=== PATIENT | female | born 1940 | race Caucasian/White ===

== ENCOUNTER 2017-02-07 09:28 | Inpatient (IN) | payer MEDICARE ==
[2017-02-07] MEDS ORDERED: IPRATROPIUM/ALBUTEROL (0.5MG/3MG) NEB INH ONE (09:48)
[2017-02-07] MEDS ORDERED: METHYLPREDNISOLONE PF 125MG/VIAL IVP ONE (09:56)
--- NOTE | 2017-02-07 09:59 | Emergency Department Record ---
History of Present Illness - General Chief Complaint: Cough Stated Complaint: COUGH Time Seen by Provider: 02/07/17 09:52 Source: Patient, Family Mode of Arrival: Wheelchair Limitations: No limitations - History of Present Illness Initial Comments: 77 yo female presents with cough and congestion since the weekend. She has a known history of COPD and CAD. She is not currently on home oxygen. She reports a productive cough with fevers. No vomiting or diarrhea. No chest pain. She has a remote history of pneumonia. She had a valve repaired about 6 months ago and reports doing well. she reports with the current cough she has shortness of breath with activity. MD Complaint: Cough Onset/Timin -: Days(s) (3) Severity: Moderate Consistency: Constant Improves With: Nothing Worsens With: Activity Associated Symptoms: Cough - Related Data Home Medications Medication Instructions Recorded Confirmed Last Taken Albuterol Sulfate [Proair 2 puff INH Q4HR PRN 08/19/16 08/19/16 Unknown Respiclick] Aspirin 81 mg PO DAILY 08/19/16 02/07/17 02/07/17 Clopidogrel Bisulfate [Plavix] 75 mg PO DAILY 08/19/16 02/07/17 02/07/17 Fluticasone/Salmeterol [Advair 1 puff INH BID 08/19/16 02/07/17 02/07/17 500-50 Diskus] Nitroglycerin [Nitrostat] 0.4 mg SL ASDIR PRN 08/19/16 02/07/17 Unknown Sertraline HCl [Zoloft] 50 mg PO DAILY 08/19/16 02/07/17 02/06/17 Tiotropium [place] [Spiriva] 18 mcg PO DAILY 08/19/16 02/07/17 02/06/17 Allergies Allergy/AdvReac Type Severity Reaction Status Date / Time codeine AdvReac VOMITING Verified 08/19/16 11:39 Travel Screening - Travel/Exposure Within Last 30 Days Have you traveled within the last 30 days?: No - Travel/Exposure Within Last Year Have you traveled outside the [place] in the last year?: No - Additonal Travel Details Have you been exposed to anyone with a communicable illness?: No - Travel Symptoms Symptom Screening: None Review of Systems Constitutional: Reports: Fever, Malaise. Denies: Chills Eyes: Denies: Eye discharge, Eye pain, Photophobia, Vision change ENT: Reports: Congestion Respiratory: Reports: Cough, Dyspnea, Wheezes Cardiovascular: Denies: Chest pain, Syncope Endocrine: Denies: Polydipsia, Polyuria Gastrointestinal: Denies: Abdominal pain, Diarrhea, Nausea, Vomiting Genitourinary: Denies: Dysuria, Urgency Musculoskeletal: Denies: Arthralgia, Back pain, Myalgia, Neck pain Skin: Denies: Bruising, Change in color, Rash Neurological: Denies: Headache, Numbness, Vertigo, Weakness Psychiatric: Denies: Anxiety Hematological/Lymphatic: Denies: Blood Clots, Easy bleeding, Easy bruising, Swollen glands Past Medical History - SOCIAL HISTORY Smoking Status: Former smoker Alcohol Use: None Drug Use: None - RESPIRATORY Hx Respiratory Disorders: Yes Hx COPD: Yes - CARDIOVASCULAR Hx Cardio Disorders: Yes Hx Chest Pain: Yes Hx Hypertension: Yes Comment:: Valve replacement - NEURO Hx Neuro Disorders: No - GI Hx GI Disorders: No - Hx Genitourinary Disorders: No - ENDOCRINE Hx Endocrine Disorders: No - MUSCULOSKELETAL Hx Musculoskeletal Disorders: No - PSYCH Hx Psych Problems: Yes Hx Anxiety: Yes Hx Depression: Yes - HEMATOLOGY/ONCOLOGY Hx Hematology/Oncology Disorders: No Family Medical History Any Significant Family History?: No Hx Heart Disease: Father, Mother Physical Exam - General General Appearance: Alert, Oriented x3, Cooperative, Mild distress (labored respirations, mild, some conversational dyspnea) Limitations: No limitations - Head Head exam: Normal inspection - Eye Eye exam: Normal appearance, PERRL. negative: Conjunctival injection, Periorbital swelling - ENT ENT exam: Normal exam, Mucous membranes moist Ear exam: Normal external inspection Nasal Exam: Normal inspection Mouth exam: Normal external inspection Teeth exam: Normal inspection Throat exam: Normal inspection - Neck Neck exam: Normal inspection, Full ROM. negative: Tenderness - Respiratory Respiratory exam: Decreased breath sounds, Rhonchi, Wheezes. negative: Normal lung sounds bilaterally - Cardiovascular Cardiovascular Exam: Regular rate, Normal rhythm, Normal heart sounds - GI/Abdominal GI/Abdominal exam: Soft - Rectal Rectal exam: Deferred - exam: Deferred - Extremities Extremities exam: Normal inspection, Full ROM, Normal capillary refill. negative: Pedal edema, Tenderness - Back Back exam: Reports: Normal inspection, Full ROM. Denies: Muscle spasm, Rash noted, Tenderness - Neurological Neurological exam: Alert, Normal gait, Oriented X3 - Psychiatric Psychiatric exam: Normal affect, Normal mood - Skin Skin exam: Dry, Intact, Normal color, Warm Course Vital Signs 02/07/17 09:33 Temperature 98.4 F Pulse Rate 94 H Respiratory 24 Rate Blood Pressure 148/113 Pulse Ox 89 L - Reevaluation(s) Reevaluation #1: CBC WBC 3.3 CMP No acute changes EKG Sinus rhythm, rate 88, intervals normal, axis left, PVC, NS ST changes. 02/07/17 10:57 02/07/17 11:41 Reevaluation #2: Influenza is negative No acute changes on the CBC,CMP or troponin The CXR was read as post op changes, chronic interstitial changes may represent pneumonitis or pulmonary edema MILD. Clinically the patient has had fever, productive cough and symptoms are more consistent with COPD exacerbation I recommend admission for the symptoms She prefers to stay at [facility] for admission. 02/07/17 11:15 Given her hypoxia and dyspnea she will be admitted for COPD exacerbation. I ANUJ ASHBY for admission 02/07/17 11:40 02/07/17 11:43 Medical Decision Making - Lab Data Result diagrams: 02/07/17 09:45 02/07/17 09:45 Disposition Forms: Patient Portal Access
[2017-02-07 10:23] LABS: HEMATOCRIT 35.3 % (35.0-47.0); HEMOGLOBIN 11.3 gm/dl (11.6-16.0); MEAN CORPUSCULAR HEMOGLOBIN 25.9 pg (27-33); MEAN PLATELET VOLUME 10.8 fl (7.4-10.4); PLATELET COUNT 185 K/uL (130-400); RED BLOOD COUNT 4.36 M/uL (3.80-5.40); RED CELL DISTRIBUTION WIDTH 16.3 % (11.5-14.5); WHITE BLOOD COUNT W/O DIFF 3.3 K/uL (4.2-12.2)
[2017-02-07 10:35] LABS: ALB/GLOB RATIO 1.1 (1.1-1.8); ALBUMIN 3.7 gm/dL (3.5-5.0); ALKALINE PHOSPHATASE 110 U/L (38-126); ALT/SGPT 51 U/L (9-52); AST/SGOT 49 U/L (14-36); BILIRUBIN,TOTAL 0.46 mg/dL (0.2-1.3); BLOOD UREA NITROGEN 11 mg/dL (7-17); CREATININE 0.6 mg/dL (0.52-1.04); EST GLOMERULAR FILTRATION RATE > 60 ml/min; GLUCOSE,RANDOM 110 mg/dL (70-110); TOTAL PROTEIN 7.1 gm/dL (6.3-8.2)
[2017-02-07 10:47] LABS: TROPONIN I < 0.012 ng/mL (0.00-0.034)
[2017-02-07 11:13] LABS: INFLUENZA A NEGATIVE (NEGATIVE); INFLUENZA B NEGATIVE (NEGATIVE)
[2017-02-07] MEDS ORDERED: ACETAMINOPHEN 500 MG TABLET PO ONE (11:33)
[2017-02-07] MEDS ORDERED: ALBUTEROL SULFATE (0.083%) 2.5 MG/3 ML NEB INH PRN (12:02)
[2017-02-07] MEDS ORDERED: ACETAMINOPHEN 500 MG TABLET PO PRN (12:02)
[2017-02-07] MEDS ORDERED: CEFTRIAXONE SODIUM 1 GM in 0.9 % SODIUM CHLORIDE 100ML 100 ML IVPB SCH (12:02)
[2017-02-07] MEDS: IPRATROPIUM/ALBUTEROL (0.5MG/3MG) NEB INH SCH ×3 (13:37→22:11)
[2017-02-07] MEDS: AZITHROMYCIN 500 MG TABLET PO SCH (14:04)
--- NOTE | 2017-02-07 14:19 | History & Physical ---
History of Present Illness - Date of Service Date of Service for History & Physical: 02/07/17 - History of Present Illness Admitting Diagnosis: COPD Exacerbation History of Present Illness: 77 yo female admitted for COPD exacerbation. PMHx of COPD, smoker (quit 6 mo's ago, 1/2 ppd x 45 years. h/o second hand smoke), cardiac stent 07/2016, GA August 2016, repair, PNA 09/2016, and depression. History obtained from patient. Patient presented to our ER today c/o yellow productive cough, congestion and sob. Onset was this past weekend. no agg/alleviating factors. assoc sx's include fatigue, weakness, orthopnea, and decreased sleep. Upon presentation, temp 98.4, HR 94, RR 24, bp 148/113, pulse ox 89 % on RA. WBC 3.3, hgb 11.3, hct 35.3, plt 185, normal CMP. influenza negative. troponin neg x 1. EKG: NSR , rate 88, intervals normal, axis left, NS ST changes. CXR: chronic interstitial changes may represent pneumonitis or mild pulmonary edema. patient 's pulse ox improved following duo neb treatment in the ER. 125 mg of IV solu medrol administered. Started on 1 gm of IV Rocephin Q12 hours and 500 mg of PO Azithromycin. Duo neb treatments scheduled Q 4 hours and albuterol inh Q2 PRN. Patient placed on teletypesetter monitor and admitted for further medical management. Patient brought to the floor. Lying in bed comfortably. Feeling less SOB following breathing treatment w/ Duo neb. Coughing up yellow sputum. States she's very fatigued and has not been able to get much sleep due to coughing. States she's been hospitalized within the past 6 months with pneumonia. The past hospitalization is a blur for patient stating "I was too ill at that time to remember it." Per patient, she was discharged from [facility] facility 01/28/17. States she's also required hospice therapy within the past 6 months though cannot tell me when this was and why she required hospice. She denies any chest pain, nvd, abd pain, blood in stool or sputum, dysuria, headhache, dizziness, confusion, change in gait or extremity weakness. 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 Denies recent travel or sick contacts. 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 PCP: Tiffani Bates M.D. Information Technology Officer: Dr. Avalos Travel Screening - Travel/Exposure Within Last 30 Days Have you traveled within the last 30 days?: No - Travel/Exposure Within Last Year Have you traveled outside the [place] in the last year?: No - Additonal Travel Details Have you been exposed to anyone with a communicable illness?: No - Travel Symptoms Symptom Screening: None Review of Systems Constitutional: Reports: Fever, Malaise. Denies: Chills Eyes: Denies: Eye discharge, Eye pain, Photophobia, Vision change ENT: Reports: Congestion Respiratory: Reports: Cough, Dyspnea, Wheezes Cardiovascular: Denies: Chest pain, Syncope Endocrine: Denies: Polydipsia, Polyuria Gastrointestinal: Denies: Abdominal pain, Diarrhea, Nausea, Vomiting Genitourinary: Denies: Dysuria, Urgency Musculoskeletal: Denies: Arthralgia, Back pain, Myalgia, Neck pain Skin: Denies: Bruising, Change in color, Rash Neurological: Denies: Headache, Numbness, Vertigo, Weakness Psychiatric: Denies: Anxiety Hematological/Lymphatic: Denies: Blood Clots, Easy bleeding, Easy bruising, Swollen glands Past Medical History - SOCIAL HISTORY Smoking Status: Former smoker Alcohol Use: None Drug Use: None - RESPIRATORY Hx Respiratory Disorders: Yes Hx COPD: Yes Hx Pneumonia: Yes (Sep 2017) - CARDIOVASCULAR Hx Cardio Disorders: Yes Hx Chest Pain: Yes Hx Hypertension: Yes Comment:: Valve replacement Aug 2017 - NEURO Hx Neuro Disorders: No - GI Hx GI Disorders: No - Hx Genitourinary Disorders: No - ENDOCRINE Hx Endocrine Disorders: No - MUSCULOSKELETAL Hx Musculoskeletal Disorders: No - PSYCH Hx Psych Problems: Yes Hx Anxiety: Yes Hx Depression: Yes - HEMATOLOGY/ONCOLOGY Hx Hematology/Oncology Disorders: No Family Medical History Any Significant Family History?: Yes Hx Heart Disease: Father, Mother H&P Meds/Allergies - Allergies Allergies: Allergies Allergy/AdvReac Type Severity Reaction Status Date / Time codeine AdvReac VOMITING Verified 08/19/16 11:39 - Home Medications Home Medications Medication Instructions Recorded Confirmed Last Taken Albuterol Sulfate [Proair 2 puff INH Q4HR PRN 08/19/16 08/19/16 Unknown Respiclick] Aspirin 81 mg PO DAILY 1002/07/17 02/07/17 Clopidogrel Bisulfate [Plavix] 75 mg PO DAILY 08/19/16 02/07/17 02/07/17 Fluticasone/Salmeterol [Advair 1 puff INH BID 08/19/16 02/07/17 02/07/17 500-50 Diskus] Nitroglycerin [Nitrostat] 0.4 mg SL ASDIR PRN 08/19/16 02/07/17 Unknown Sertraline HCl [Zoloft] 50 mg PO DAILY 08/19/16 02/07/17 02/06/17 Tiotropium [place] [Spiriva] 18 mcg PO DAILY 08/19/16 02/07/17 02/06/17 Mirtazapine [Mirtazapine] 7.5 mg PO QHS 02/07/17 02/07/17 Unknown - Active Medications Active Medications: Current Medications Acetaminophen (Tylenol 500mg Tab) 500 mg PO Q6H PRN PRN Reason: PAIN/TEMP Albuterol Sulfate () 2.5 mg INH RESP.Q2H PRN PRN Reason: DIFFICULTY IN BREATHING Albuterol/Ipratropium (Duoneb) 3 ml INH RESP.Q4H.[facility] Last Admin: 02/07/17 13:37 Dose: 3 ml Aspirin (Ecotrin (Ec)) 81 mg PO DAILY [facility] Azithromycin (Zithromax) 500 mg PO DAILY [facility] Last Admin: 02/07/17 14:04 Dose: 500 mg Clopidogrel Bisulfate (Plavix) 75 mg PO DAILY [facility] Ceftriaxone Sodium 1 gm/ (Sodium Chloride) 100 mls @ 100 mls/hr IVPB Q12H [facility] Stop: 02/12/17 12:03 Methylprednisolone Sodium Succinate (Solu-Medrol) 60 mg IVP DAILY [facility] Mirtazapine (Remeron) 7.5 mg PO QHS [facility] Sertraline HCl (Zoloft) 50 mg PO DAILY [facility] Physical Exam - Vital Signs Vital Signs: Vital Signs - Last 24 Hrs Temp Pulse Pulse Resp BP Pulse Ox 02/07/17 13:53 88 20 95 02/07/17 12:33 24 02/07/17 12:02 98.5 F 95 H 18 140/73 94 L - General General Appearance: Alert, Oriented x3, Cooperative, No acute distress, Mild distress (labored respirations, mild, some conversational dyspnea) Limitations: No limitations - Head Head exam: Normal inspection - Eye Eye exam: Normal appearance, PERRL. negative: Conjunctival injection, Periorbital swelling - ENT ENT exam: Normal exam, Mucous membranes moist Ear exam: Normal external inspection Nasal Exam: Normal inspection Mouth exam: Normal external inspection Teeth exam: Normal inspection Throat exam: Normal inspection - Neck Neck exam: Normal inspection, Full ROM. negative: Tenderness - Respiratory Respiratory exam: Decreased breath sounds, Rhonchi, Wheezes. negative: Normal lung sounds bilaterally - Cardiovascular Cardiovascular Exam: Regular rate, Normal rhythm, Normal heart sounds - GI/Abdominal GI/Abdominal exam: Soft - Rectal Rectal exam: Deferred - exam: Deferred - Extremities Extremities exam: Normal inspection, Full ROM, Normal capillary refill. negative: Pedal edema, Tenderness - Back Back exam: Reports: Normal inspection, Full ROM. Denies: Muscle spasm, Rash noted, Tenderness - Neurological Neurological exam: Alert, Normal gait, Oriented X3 - Psychiatric Psychiatric exam: Normal affect, Normal mood - Skin Skin exam: Dry, Intact, Normal color, Warm Results - Labs Result Diagrams: 02/07/17 09:45 02/07/17 09:45 VTE H&P Assessment - Risk for VTE Risk for VTE: Yes Risk Level: High (age, decreased ambulation, resp state, h/o [place]) Risk Assessment Date: 02/07/17 Risk Assessment Time: 14:35 VTE Orders Placed or Will Be Placed: Yes Plan - Detailed Diagnosis and Plan (1) COPD exacerbation Current Visit: Yes Status: Acute Base Code: J44.1 - CHRONIC OBSTRUCTIVE PULMONARY DISEASE W (ACUTE) EXACERBATION Comment: 02/07/17: 77 yo f admitted for COPD exacerbation. PMHx of smoking, COPD. - WBC normal. afebrile. CXR: NAP, COPD. potential mild pulm edema vs. peumonitis. EKG: NSR, rate 88, no ST changes. troponin neg. - medications: Duo neb Q4 hours, albuterol inh Q 2 PRN, azithromycin 500 mg po daily, 60 mg of IV solu medrol (125 mg administered in the ED). - consider adding LAMA/LABA if no improvement. - supp oxygen as needed- oxygen sat at 95% on 3 L's NC -VS's Q6 hours -requesting patients most recent hospital stay at [facility] as patient reports she was in a coma back in september or october along with recent hospice services-- though patient is not too familiary with this history. (2) DVT prophylaxis Current Visit: Yes Status: Acute Base Code: [id number] - Comment: 02/07/17: high risk: age, decreased mobility, cardiac hx. (3) Full code status Current Visit: Yes Status: Acute Base Code: Z78.9 - OTHER SPECIFIED HEALTH STATUS Comment: 02/07/17: patient is full code
[2017-02-07] MEDS: MIRTAZAPINE 15 MG TABLET PO SCH (21:12)
[2017-02-07] MEDS: CEFTRIAXONE SODIUM 1 GM in 0.9 % SODIUM CHLORIDE 100ML 100 ML IVPB SCH (21:16)
[2017-02-08] MEDS: IPRATROPIUM/ALBUTEROL (0.5MG/3MG) NEB INH SCH ×5 (05:21→21:07)
[2017-02-08 06:30] LABS: BASO % 0.2 % (0-6); GRAN % 73.4 % (47-80); HEMATOCRIT 35.5 % (35.0-47.0); HEMOGLOBIN 11.1 gm/dl (11.6-16.0); LYMPH % 15.7 % (16-45); MEAN CELL VOLUME 81.6 fl (81-97); MEAN CORPUSCULAR HEMOGLOBIN 25.5 pg (27-33); MEAN CORPUSCULAR HGB CONC 31.3 g/dl (32-36); MEAN PLATELET VOLUME 10.2 fl (7.4-10.4); MONO % 10.7 % (0-9); PLATELET COUNT 178 K/uL (130-400); RED BLOOD COUNT 4.35 M/uL (3.80-5.40); RED CELL DISTRIBUTION WIDTH 16.2 % (11.5-14.5); WHITE BLOOD COUNT W/O DIFF 6.1 K/uL (4.2-12.2)
[2017-02-08 06:50] LABS: ALB/GLOB RATIO 1.1 (1.1-1.8); ALBUMIN 3.5 gm/dL (3.5-5.0); ALKALINE PHOSPHATASE 115 U/L (38-126); ALT/SGPT 47 U/L (9-52); ANION GAP 8.1 (7-16); AST/SGOT 38 U/L (14-36); BILIRUBIN,TOTAL 0.33 mg/dL (0.2-1.3); BLOOD UREA NITROGEN 25 mg/dL (7-17); CARBON DIOXIDE 27.9 mmol/L (22-30); CREATININE 0.7 mg/dL (0.52-1.04); EST GLOMERULAR FILTRATION RATE > 60 ml/min; GLUCOSE,RANDOM 118 mg/dL (70-110); TOTAL PROTEIN 6.7 gm/dL (6.3-8.2)
--- NOTE | 2017-02-08 07:28 | RADIOLOGY REPORT ---
EXAM: CHEST, TWO VIEWS HISTORY: COUGH. CHEST TIGHTNESS AND WHEEZING FOR FOUR DAYS. TECHNIQUE: Upright PA and lateral views of the chest were obtained. Comparison: Two view chest radiographic examination dated 08/19/16. FINDINGS: There has been interval median sternotomy and placement of a prosthetic aortic valve. The heart projects borderline to mildly enlarged and there is new mild pulmonary venous hypertension. The lungs are hyperinflated consistent with COPD. Healed granulomatous disease is again noted within the left hemithorax. Mild reticular opacity prominence is scattered in each lung, new in the interval consistent with edema or interstitial pneumonitis. Chronic interstitial changes less likely. Multilevel degenerative changes of the thoracic spine associated with dextroconvex scoliosis. Post cholecystectomy changes. IMPRESSION: 1. INTERVAL MEDIAN STERNOTOMY AND AORTIC VALVE REPLACEMENT. 2. BORDERLINE TO MILD CARDIOMEGALY WITH APPARENT MILD PULMONARY VENOUS HYPERTENSION. MILD FLUID OVERLOAD IS CONSIDERED. 3. MILD RETICULAR OPACITY PROMINENCE IN EACH LUNG MORE PRONOUNCED IN THE INTERVAL. DIAGNOSTIC CONSIDERATIONS INCLUDE INTERSTITIAL EDEMA, INTERSTITIAL PNEUMONITIS, OR PROGRESSION OF CHRONIC INTERSTITIAL CHANGES. 4. HEALED GRANULOMATOUS DISEASE REDEMONSTRATED IN THE LEFT HEMITHORAX. JOB NUMBER: [id number] [facility]
[2017-02-08] MEDS ORDERED: PHENOL SORE THROAT SPRAY 177 ML BTL MM PRN (08:36)
[2017-02-08] MEDS: METHYLPREDNISOLONE PF 125MG/VIAL IVP SCH (09:55)
[2017-02-08] MEDS: CEFTRIAXONE SODIUM 1 GM in 0.9 % SODIUM CHLORIDE 100ML 100 ML IVPB SCH ×2 (09:55→22:03)
[2017-02-08] MEDS: AZITHROMYCIN 500 MG TABLET PO SCH (09:55)
[2017-02-08] MEDS: ASPIRIN 81 MG TABEC PO SCH (09:55)
[2017-02-08] MEDS: CLOPIDOGREL 75MG TABLET PO SCH (09:55)
[2017-02-08] MEDS: SERTRALINE HCL 50 MG TABLET PO SCH (09:56)
[2017-02-08] MEDS ORDERED: BENZONATATE 100 MG CAPSULE PO PRN (17:26)
--- NOTE | 2017-02-08 21:45 | Physician Progress Note ---
Subjective - Date Date of Physician Progress Note: 02/08/17 - Subjective Subjective Comment: Reports continues to feel weak. Was discharged from SNF about a week ago and does not feel strength is where it needs to be for her to feel safe. She lives alone. Objective - Vital Signs Vital Signs: Vital Signs - Last 24 Hrs Temp Pulse Pulse Resp BP Pulse Ox 02/08/17 21:11 98 H 22 98 02/08/17 19:45 97.7 F 106 H 26 H 129/75 96 02/08/17 18:40 98 H 20 94 L 02/08/17 14:29 96 H 24 95 02/08/17 09:00 97.5 F L 105 H 20 132/103 95 02/08/17 05:30 97.9 F 111 H 24 108/67 97 02/08/17 05:24 92 H 22 94 L - General General Appearance: Alert, Oriented x3, Cooperative, No acute distress, Mild distress ( mild conversational dyspnea), Other (cachectic) Limitations: No limitations - Head Head exam: Normal inspection - Eye Eye exam: Normal appearance, PERRL. negative: Conjunctival injection, Periorbital swelling - ENT ENT exam: Normal exam, Mucous membranes moist Ear exam: Normal external inspection Nasal Exam: Normal inspection Mouth exam: Normal external inspection Teeth exam: Normal inspection Throat exam: Normal inspection - Neck Neck exam: Normal inspection, Full ROM. negative: Tenderness - Respiratory Respiratory exam: Decreased breath sounds, Rhonchi, Wheezes. negative: Normal lung sounds bilaterally - Cardiovascular Cardiovascular Exam: Regular rate, Normal rhythm, Normal heart sounds - GI/Abdominal GI/Abdominal exam: Soft - Rectal Rectal exam: Deferred - exam: Deferred - Extremities Extremities exam: Normal inspection, Full ROM, Normal capillary refill. negative: Pedal edema, Tenderness - Back Back exam: Reports: Normal inspection, Full ROM. Denies: Muscle spasm, Rash noted, Tenderness - Neurological Neurological exam: Alert, Normal gait, Oriented X3 - Psychiatric Psychiatric exam: Normal affect, Normal mood - Skin Skin exam: Dry, Intact, Normal color, Warm Assessment and Plan - Assessment and Plan (1) COPD exacerbation Current Visit: Yes Status: Acute Base Code: J44.1 - CHRONIC OBSTRUCTIVE PULMONARY DISEASE W (ACUTE) EXACERBATION Comment: 02/08/17: 77 yo f admitted for COPD exacerbation. PMHx of smoking, COPD. - WBC normal. afebrile. CXR: NAP, COPD. potential mild pulm edema vs. peumonitis. EKG: NSR, rate 88, no ST changes. troponin neg. - RSV + - medications: Duo neb Q4 hours, albuterol inh Q 2 PRN, azithromycin 500 mg po daily, 60 mg of IV solu medrol (125 mg administered in the ED). - consider adding LAMA/LABA if no improvement. 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 (2) Generalized weakness Current Visit: Yes Status: Acute Base Code: R53.1 - WEAKNESS Comment: 02/08/17- Recent stay at SNF for rehab following cardiac procedure. Was discharged 1 week ago, lives alone - PT eval (3) DVT prophylaxis Current Visit: Yes Status: Acute Base Code: [id number] - Comment: 02/08/17: high risk: age, decreased mobility, cardiac hx. (4) Full code status Current Visit: Yes Status: Acute Base Code: Z78.9 - OTHER SPECIFIED HEALTH STATUS Comment: 02/08/17: patient is full code Results - Labs Result Diagrams: 02/08/17 06:00 02/08/17 06:00 Labs Last 24 Hours: Laboratory Results - last 24 hr 02/07/17 02/08/17 02/08/17 16:16 06:00 06:00 WBC 6.1 RBC 4.35 Hgb 11.1 L Hct 35.5 MCV 81.6 MCH 25.5 L MCHC 31.3 L RDW 16.2 H Plt Count 178 MPV 10.2 Gran % 73.4 Lymphocytes % 15.7 L Monocytes % 10.7 H Eosinophils % 0.0 Basophils % 0.2 Sodium 139 Potassium 4.3 Chloride 103 Carbon Dioxide 27.9 Anion Gap 8.1 BUN 25 H Creatinine 0.7 Estimated GFR > 60 Random Glucose 118 H Calcium 9.0 Total Bilirubin 0.33 AST 38 H ALT 47 Alkaline Phosphatase 115 Total Protein 6.7 Albumin 3.5 Globulin 3.2 Albumin/Globulin Ratio 1.1 Influenza Type A (PCR) Not detected Influenza Type B (PCR) Not detected RSV (PCR) Detected H DVT/PE Assessment - Risk for VTE Risk for VTE: No Risk Level: High (age, decreased ambulation, resp state, h/o [place]) Risk Assessment Date: 02/07/17 Risk Assessment Time: 14:35 VTE Orders Placed or Will Be Placed: Yes - Active Medicaitons Current Medications: Current Medications Acetaminophen (Tylenol 500mg Tab) 500 mg PO Q6H PRN PRN Reason: PAIN/TEMP Last Admin: 02/08/17 15:52 Dose: 500 mg Albuterol Sulfate () 2.5 mg INH RESP.Q2H PRN PRN Reason: DIFFICULTY IN BREATHING Albuterol/Ipratropium (Duoneb) 3 ml INH RESP.Q4H.[facility] Last Admin: 02/08/17 21:07 Dose: 3 ml Aspirin (Ecotrin (Ec)) 81 mg PO DAILY [facility] Last Admin: 02/08/17 09:55 Dose: 81 mg Azithromycin (Zithromax) 500 mg PO DAILY [facility] Last Admin: 02/08/17 09:55 Dose: 500 mg Benzonatate (Tessalon) 100 mg PO TID PRN PRN Reason: COUGH Clopidogrel Bisulfate (Plavix) 75 mg PO DAILY [facility] Last Admin: 02/08/17 09:55 Dose: 75 mg Ceftriaxone Sodium 1 gm/ (Sodium Chloride) 100 mls @ 100 mls/hr IVPB Q12H [facility] Stop: 02/12/17 12:03 Last Admin: 02/08/17 09:55 Dose: 100 mls/hr Methylprednisolone Sodium Succinate (Solu-Medrol) 60 mg IVP DAILY [facility] Last Admin: 02/08/17 09:55 Dose: 60 mg Mirtazapine (Remeron) 7.5 mg PO QHS [facility] Last Admin: 02/07/17 21:12 Dose: 7.5 mg Sertraline HCl (Zoloft) 50 mg PO DAILY [facility] Last Admin: 02/08/17 09:56 Dose: 50 mg Throat Lozenges (Chloraseptic) 177 ml MM Q1H PRN PRN Reason: Pain - General Last Admin: 02/08/17 09:54 Dose: 177 ml AMI Plan - Labs Result Diagrams: 02/08/17 06:00 02/08/17 06:00
[2017-02-08] MEDS: MIRTAZAPINE 15 MG TABLET PO SCH (22:03)
[2017-02-09] MEDS: IPRATROPIUM/ALBUTEROL (0.5MG/3MG) NEB INH SCH (07:18)
[2017-02-09] MEDS: CEFTRIAXONE SODIUM 1 GM in 0.9 % SODIUM CHLORIDE 100ML 100 ML IVPB SCH (10:16)
[2017-02-09] MEDS: SERTRALINE HCL 50 MG TABLET PO SCH (10:19)
[2017-02-09] MEDS: AZITHROMYCIN 500 MG TABLET PO SCH (10:19)
[2017-02-09] MEDS: ASPIRIN 81 MG TABEC PO SCH (10:19)
[2017-02-09] MEDS: METHYLPREDNISOLONE PF 125MG/VIAL IVP SCH (10:19)
[2017-02-09] MEDS: CLOPIDOGREL 75MG TABLET PO SCH (10:19)
[2017-02-09] MEDS ORDERED: SALMETEROL XINAFOATE INH SCH (10:30)
[2017-02-09] MEDS ORDERED: TIOTROPIUM BROMIDE 5 CAPSULES INH SCH (10:30)
--- NOTE | 2017-02-09 10:38 | Rehab Evaluation ---
Patient Information - Patient Information Diagnosis: COPD exacerbation Ordered Treatment: OT Evaluate and Treat Status: Initial Evaluation Surgery: No History: Detail (Pt presented to the ED on 02/07/17 with c/o cough and congestion.) Past Medical/Surgical Hx: PAST MEDICAL/SURGICAL HISTORY Past Surgical History Stent(cardiac) 2015, hip fracture repair, Valve replacement. PMH - Respiratory Hx Respiratory Disorders Yes Hx Chronic Obstructive Yes Pulmonary Disease (COPD) Hx Pneumonia Yes: Sep 2017 PMH - Cardiovascular Hx Cardiovascular Disorders Yes Hx Chest Pain Yes Hx Hypertension Yes Comment: Valve replacement Aug 2017 PMH - Neuro Hx Neurological Disorders No PMH - GI Hx Gastrointestinal Disorders No PMH - Hx Genitourinary Disorders No PMH - Endocrine Hx Endocrine Disorders No PMH - Musculoskeletal Hx Musculoskeletal Disorders No PMH - Psych Hx Psychiatric Problems Yes Hx Anxiety Yes Hx Depression Yes PMH - Hematology/Oncology Hx Hematology/Oncology No Disorders Premorbid Status: Detail (Pt reports she had open heart surgery and was in a SNF for Rehab until approx. 1 week ago. She lives alone in a 2 story house with basement but does not use the second floor. She reports her laundry is in the basement. She was Ind with home mgmt, meal prep and laundry prior to her open heart surgery but she reports she was not "doing it well" and she is looking for help with these tasks. She has 2 small steps with casimiro hand railings at the entrance, a half bath on the first floor that she is planning to remodel with a shower. She has a raised toilet seat without grab bars and ambulated with a cane inconsistently.) Social History: Detail (She has a couple of supportive friends.) Precautions: [place], Fall, Cardiac, Other (Droplet) - Time With Patient Total Time Spent With Patient (Min): 40 Treatment Procedures: Detail (OT eval- moderate complexity) Subjective Information - Subjective Information Per Patient Objective Data - Pain Pain Present: No - Mental Status Patient Orientation: Oriented x3 - Visual Perception Appears within normal limits for therapeutic activities (Pt wears glasses) - ROM Within normal limits (Casimiro UE AROM WNL) - Strength/Tone Not within normal limits (Casimiro UE MMT 4+/5 although she became very short of breath with UE activity.) - Coordination Appears within normal limits for therapeutic activities - Bed Mobility Independent (Ind with supine to sit) - Transfers Independent - Balance Balance Sitting: Good Balance Standing: Fair - Sensation Intact - Gait Detail (Pt amb approx. 20 feet to bathroom sink and back with CG assist and using oxygen.) - ADL's/IADL's Detail (Pt able to complete oral hygiene and combed hair at sink in standing Indly although became short of breath easily. She reports she is toileting with assist from nursing due to oxygen tubing and IV. Other ADLs not formally assessed.) Therapy Assessment - Therapy Assessment Detail (Pt presents with good overall strength, she is very deconditioned and weak and become significantly short of breath with activity.) Problem List - Problem List Occupational Therapy Problem List: Detail (1. Decreased endurance needed for safe and Ind self care activities and functional mobility) Goals - Goals Occupational Therapy Goals: 1. Pt will be Ind with showering 2. Pt will be Ind with total body dressing 3. Pt will be safe and Ind with functional mobility needed for ADL activities 4. Pt will participate in activities to improve endurance and eliminate shortness of breath with self cares. Prognosis - Prognosis Good Plan - Plan Occupational Therapy Plan: Ot 2-4 days per week to address goals and problem list. Recommend short IP rehab stay to improve safety and endurance.
--- NOTE | 2017-02-09 10:39 | Rehab Evaluation ---
Patient Information - Patient Information Diagnosis: COPD exacerbation Ordered Treatment: PT Evaluate and Treat Status: Initial Evaluation History: Detail (The patient presented in ED with complaints of weakness and fatigue on 02/08/16 and was admitted as an inpatient. The patient had previous been in inpatient Rehab and had discharged on 01/28/17.) Past Medical/Surgical Hx: PAST MEDICAL/SURGICAL HISTORY Past Surgical History Stent(cardiac) 2015, hip fracture repair, Valve replacement. PMH - Respiratory Hx Respiratory Disorders Yes Hx Chronic Obstructive Yes Pulmonary Disease (COPD) Hx Pneumonia Yes: Sep 2017 PMH - Cardiovascular Hx Cardiovascular Disorders Yes Hx Chest Pain Yes Hx Hypertension Yes Comment: Valve replacement Aug 2017 PMH - Neuro Hx Neurological Disorders No PMH - GI Hx Gastrointestinal Disorders No PMH - Hx Genitourinary Disorders No PMH - Endocrine Hx Endocrine Disorders No PMH - Musculoskeletal Hx Musculoskeletal Disorders No PMH - Psych Hx Psychiatric Problems Yes Hx Anxiety Yes Hx Depression Yes PMH - Hematology/Oncology Hx Hematology/Oncology No Disorders Premorbid Status: Detail (The patient reports she had been home for a week from Rehab and was ambulatory without device short distances.) Social History: Detail (The patient lives alone in a 2 story home with a basement with 2 steps at the enterance with 2 railings. The patient reports her downstairs bathroom is a 1/2 bathroom with no shower and a raised toilet. The patient's full bathroom with tub is upstairs but high and unassessible . The patient stated she was completing a sponge bath . The patient has a standard cane with a wide base of support that she was using at times. The patient reports she was completing all ADL's independently with proper pacing.) - Time With Patient Total Time Spent With Patient (Min): 30 Treatment Procedures: Detail (Initial Evaluation) Subjective Information - Subjective Information Per Patient (The patient denied pain but complained of decreased endurance for activity and fatigue.) Objective Data - Mental Status Patient Orientation: Oriented x3 - Visual Perception Appears within normal limits for therapeutic activities - ROM Within normal limits (The patient's LE AROM is WNL.) - Strength/Tone Within normal limits (The patient's LE strength is generally 4+ to 5/5. Refer to OT note for UE strength.) - Bed Mobility Independent (The patient was independent with supine to and from sit transfer.) - Transfers Independent (The patient achieved sit to stand with supervision for safety.) - Balance Balance Sitting: Good Balance Standing: Fair (The patient was able to stand without support, however when completing ADL's brushing teeth and combing hair, patient hung onto sink for support.) - Gait Detail (The patient ambulated without device 26 ft x 1 with CG/supervision for safety and 2L of O2. Shortness of breath was noted after ambulation and increased postural sway was noted, however the patient was able to right herself.) Therapy Assessment - Therapy Assessment Detail (The patient demonstrates decreased standing balance and decreased ability to complete sustained physical activity. The patient has shortness of breath with activity. Feel the patient would benefit from ongoing Rehab to return to previous functional level in either subacute setting or home. If the patient is discharged to home setting 24 hour supervision is recommended due to deconditioned status and decreased standing balance. PT evaluation complexity level is rated as low due to current status is not evovling or unstable.) Problem List - Problem List Physical Therapy Problem List: Detail (1) Decreased ability to complete sustained physical activities 2) Decreased balance in standing 3) Shortness of breath with ambulation and physical activity.) Goals - Goals Physical Therapy Goals: 1) The patient will ambulate with or without an assistive device independently distances of 75 to 100 feet. 2) Assess the patient's balance using Tinetti Balance scale. 3) The patient will tolerate 30 to 40 minutes of physical activity with one to two rest periods. 4) Independent with all transfers. 4) Ambulation on 2 to 3 stairs with supervision for safety. Prognosis - Prognosis Good Plan - Plan Physical Therapy Plan: PT daily M-F for balance exercises, transfer training, ambulation and exercises to improve muscular endurance.
--- NOTE | 2017-02-09 14:37 | Physician Progress Note ---
Addendum entered and electronically signed by MARINO JI N.P. 02/09/17 14:54: Admit to inpatient care: Based on my medical assessment, after consideration of patient's risk factors (age, co-morbidities and patient presenting symptoms and acuity), I expect that this patient will remain in the hospital greater than or equal to two midnights and that the services needed warrant inpatient care because: Patient Risk Factors: [advanced age, COPD, weakness] Estimated length of stay: [48-72 hours] The patient may reasonably be expected to be discharged or transferred to a hospital within 96 hours after admission to [facility]. Services needed: [oxygen, PT/OT eval] Post hospital care (if known): [] I certify that my determination is in accordance with my understanding of Medicare requirements for reasonable and necessary inpatient services. Original Note: Subjective - Date Date of Physician Progress Note: 02/09/17 - Subjective Subjective Comment: Reports feeling much better today. Feels her strength has improved since yesterday. Yesterday was interested in being evaluated for swing bed program but today is wanting to discharge home if PT eval shows she is safe to do so. Lives alone but does have friend support available to her. Denies worsening of cough or breathing. Denies GI/ dysfunction. No new nursing concerns. Has not previously used oxygen at home but states she has been urged by physicians in the past to be evaluated for it. Objective - Vital Signs Vital Signs: Vital Signs - Last 24 Hrs Temp Pulse Pulse Resp BP Pulse Ox 02/09/17 11:00 70 16 02/09/17 07:15 87 16 96 02/09/17 05:14 142/87 02/09/17 04:00 98.0 F 95 H 26 H 153/102 97 02/08/17 21:11 98 H 22 98 02/08/17 21:00 22 02/08/17 19:45 97.7 F 106 H 26 H 129/75 96 02/08/17 18:40 98 H 20 94 L - General General Appearance: Alert, Oriented x3, Cooperative, No acute distress, Other ( cachectic) Limitations: No limitations - Head Head exam: Normal inspection - Eye Eye exam: Normal appearance, PERRL. negative: Conjunctival injection, Periorbital swelling - ENT ENT exam: Normal exam, Mucous membranes moist Ear exam: Normal external inspection Nasal Exam: Normal inspection Mouth exam: Normal external inspection Teeth exam: Normal inspection Throat exam: Normal inspection - Neck Neck exam: Normal inspection, Full ROM. negative: Tenderness - Respiratory Respiratory exam: Decreased breath sounds. negative: Normal lung sounds bilaterally - Cardiovascular Cardiovascular Exam: Regular rate, Normal rhythm, Normal heart sounds - GI/Abdominal GI/Abdominal exam: Soft - Rectal Rectal exam: Deferred - exam: Deferred - Extremities Extremities exam: Normal inspection, Full ROM, Normal capillary refill. negative: Pedal edema, Tenderness - Back Back exam: Reports: Normal inspection, Full ROM. Denies: Muscle spasm, Rash noted, Tenderness - Neurological Neurological exam: Alert, Normal gait, Oriented X3 - Psychiatric Psychiatric exam: Normal affect, Normal mood - Skin Skin exam: Dry, Intact, Normal color, Warm Assessment and Plan - Assessment and Plan (1) COPD exacerbation Current Visit: Yes Status: Acute Base Code: J44.1 - CHRONIC OBSTRUCTIVE PULMONARY DISEASE W (ACUTE) EXACERBATION Comment: 02/09/17: 77 yo f admitted for COPD exacerbation. PMHx of smoking, COPD. - WBC normal. afebrile. CXR: NAP, COPD. potential mild pulm edema vs. peumonitis. EKG: NSR, rate 88, no ST changes. troponin neg. RSV +. Clinical improvment today. - medications: albuterol inh Q 2 PRN, azithromycin 500 mg po daily, 60 mg of IV solu medrol (125 mg administered in the ED). 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 Documents not available as of today's date. (2) Generalized weakness Current Visit: Yes Status: Acute Base Code: R53.1 - WEAKNESS Comment: 02/09/17- Recent stay at SNF for rehab following cardiac procedure. Was discharged 1 week ago, lives alone. PT eval done today, is safe for discharge - Will need home PT/OT at time of discharge - has close friend/family support at home (3) DVT prophylaxis Current Visit: Yes Status: Acute Base Code: [id number] - Comment: 02/09/17: high risk: age, decreased mobility, cardiac hx. (4) Full code status Current Visit: Yes Status: Acute Base Code: Z78.9 - OTHER SPECIFIED HEALTH STATUS Comment: 02/09/17: patient is full code Results - Labs Result Diagrams: 02/08/17 06:00 02/08/17 06:00 DVT/PE Assessment - Risk for VTE Risk for VTE: No Risk Level: High (age, decreased ambulation, resp state, h/o VA) Risk Assessment Date: 02/07/17 Risk Assessment Time: 14:35 VTE Orders Placed or Will Be Placed: Yes - Active Medicaitons Current Medications: Current Medications Acetaminophen (Tylenol 500mg Tab) 500 mg PO Q6H PRN PRN Reason: PAIN/TEMP Last Admin: 02/08/17 15:52 Dose: 500 mg Albuterol Sulfate () 2.5 mg INH RESP.Q2H PRN PRN Reason: DIFFICULTY IN BREATHING Aspirin (Ecotrin (Ec)) 81 mg PO DAILY [facility] Last Admin: 02/09/17 10:19 Dose: 81 mg Azithromycin (Zithromax) 500 mg PO DAILY [facility] Last Admin: 02/09/17 10:19 Dose: 500 mg Benzonatate (Tessalon) 100 mg PO TID PRN PRN Reason: COUGH Last Admin: 02/08/17 22:03 Dose: 100 mg Clopidogrel Bisulfate (Plavix) 75 mg PO DAILY [facility] Last Admin: 02/09/17 10:19 Dose: 75 mg Ceftriaxone Sodium 1 gm/ (Sodium Chloride) 100 mls @ 100 mls/hr IVPB Q12H [facility] Stop: 02/12/17 12:03 Last Admin: 02/09/17 10:16 Dose: 100 mls/hr Methylprednisolone Sodium Succinate (Solu-Medrol) 60 mg IVP DAILY [facility] Last Admin: 02/09/17 10:19 Dose: 60 mg Mirtazapine (Remeron) 7.5 mg PO QHS [facility] Last Admin: 02/08/17 22:03 Dose: 7.5 mg Salmeterol Xinafoate (Serevent Diskus) 1 puff INH RESP.Q12H [facility] Last Admin: 02/09/17 11:00 Dose: 1 puff Sertraline HCl (Zoloft) 50 mg PO DAILY [facility] Last Admin: 02/09/17 10:19 Dose: 50 mg Throat Lozenges (Chloraseptic) 177 ml MM Q1H PRN PRN Reason: Pain - General Last Admin: 02/08/17 09:54 Dose: 177 ml Tiotropium [place] (Spiriva) 1 cap INH RESP.DAILY [facility] Last Admin: 02/09/17 11:00 Dose: 1 cap AMI Plan - Labs Result Diagrams: 02/08/17 06:00 02/08/17 06:00
--- NOTE | 2017-02-09 14:38 | Discharge Summary ---
Providers Discharge Summary Date: 02/09/17 Date of admission: 02/07/17 12:00 Expected Date of Discharge: 02/09/17 Attending physician: DARYL QUINTERO Physical Exam - Vital Signs Vital Signs: Vital Signs - Last 24 Hrs Temp Pulse Pulse Resp BP Pulse Ox 02/09/17 11:00 70 16 02/09/17 07:15 87 16 96 02/09/17 05:14 142/87 02/09/17 04:00 98.0 F 95 H 26 H 153/102 97 02/08/17 21:11 98 H 22 98 02/08/17 21:00 22 02/08/17 19:45 97.7 F 106 H 26 H 129/75 96 02/08/17 18:40 98 H 20 94 L - General General Appearance: Alert, Oriented x3, Cooperative, No acute distress, Other ( cachectic) Limitations: No limitations - Head Head exam: Normal inspection - Eye Eye exam: Normal appearance, PERRL. negative: Conjunctival injection, Periorbital swelling - ENT ENT exam: Normal exam, Mucous membranes moist Ear exam: Normal external inspection Nasal Exam: Normal inspection Mouth exam: Normal external inspection Teeth exam: Normal inspection Throat exam: Normal inspection - Neck Neck exam: Normal inspection, Full ROM. negative: Tenderness - Respiratory Respiratory exam: Decreased breath sounds. negative: Normal lung sounds bilaterally - Cardiovascular Cardiovascular Exam: Regular rate, Normal rhythm, Normal heart sounds - GI/Abdominal GI/Abdominal exam: Soft - Rectal Rectal exam: Deferred - exam: Deferred - Extremities Extremities exam: Normal inspection, Full ROM, Normal capillary refill. negative: Pedal edema, Tenderness - Back Back exam: Reports: Normal inspection, Full ROM. Denies: Muscle spasm, Rash noted, Tenderness - Neurological Neurological exam: Alert, Normal gait, Oriented X3 - Psychiatric Psychiatric exam: Normal affect, Normal mood - Skin Skin exam: Dry, Intact, Normal color, Warm Hospitalization - Hospitalization Admission Diagnosis: COPD Exacerbation - Problem List/Discharge Diagnosis (1) COPD exacerbation Status: Acute Base Code: J44.1 - CHRONIC OBSTRUCTIVE PULMONARY DISEASE W ( ACUTE) EXACERBATION Comment: 02/09/17: 77 yo f admitted for COPD exacerbation. PMHx of smoking, COPD. - WBC normal. afebrile. CXR: NAP, COPD. potential mild pulm edema vs. peumonitis. EKG: NSR, rate 88, no ST changes. troponin neg. RSV +. Clinical improvment today. - medications: albuterol inh Q 2 PRN, azithromycin 500 mg po daily, 60 mg of IV solu medrol (125 mg administered in the ED). 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 Documents not available as of today's date. (2) Generalized weakness Status: Acute Base Code: R53.1 - WEAKNESS Comment: 02/09/17- Recent stay at SNF for rehab following cardiac procedure. Was discharged 1 week ago, lives alone. PT eval done today, is safe for discharge - Will need home PT/OT at time of discharge - has close friend/family support at home (3) DVT prophylaxis Status: Acute Base Code: [id number] - Comment: 02/09/17: high risk: age, decreased mobility, cardiac hx. (4) Full code status Status: Acute Base Code: Z78.9 - OTHER SPECIFIED HEALTH STATUS Comment: 02/09/17: patient is full code - Hospitalization Course Disposition: Home Health Service Hospital Course: 77 yo female admitted for COPD exacerbation. PMHx of COPD, smoker (quit 6 mo's ago, 1/2 ppd x 45 years. h/o second hand smoke), cardiac stent 07/2016, [place] August 2016, repair, PNA 09/2016, and depression. History obtained from patient. Patient presented to our ER today c/o yellow productive cough, congestion and sob. Onset was this past weekend. no agg/alleviating factors. assoc sx's include fatigue, weakness, orthopnea, and decreased sleep. Upon presentation, temp 98.4, HR 94, RR 24, bp 148/113, pulse ox 89 % on RA. WBC 3.3, hgb 11.3, hct 35.3, plt 185, normal CMP. influenza negative. troponin neg x 1. EKG: NSR , rate 88, intervals normal, axis left, NS ST changes. CXR: chronic interstitial changes may represent pneumonitis or mild pulmonary edema. patient 's pulse ox improved following duo neb treatment in the ER. 125 mg of IV solu medrol administered. Started on 1 gm of IV Rocephin Q12 hours and 500 mg of PO Azithromycin. Duo neb treatments scheduled Q 4 hours and albuterol inh Q2 PRN. Patient placed on registered nurse cardiac and admitted for further medical management. Patient brought to the floor. Lying in bed comfortably. Feeling less SOB following breathing treatment w/ Duo neb. Coughing up yellow sputum. States she's very fatigued and has not been able to get much sleep due to coughing. States she's been hospitalized within the past 6 months with pneumonia. The past hospitalization is a blur for patient stating "I was too ill at that time to remember it." Per patient, she was discharged from [facility] facility 01/28/17. States she's also required hospice therapy within the past 6 months though cannot tell me when this was and why she required hospice. She denies any chest pain, nvd, abd pain, blood in stool or sputum, dysuria, headhache, dizziness, confusion, change in gait or extremity weakness. No wad impregnator. Denies recent travel or sick contacts. 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 PCP: Tiffani Bates M.D. Power Shovel Engineer: Dr. Avalos Abnormal Labs: Abnormal Lab Results 02/07/17 02/08/17 02/08/17 Range/Units 16:16 06:00 06:00 Hgb 11.1 L (11.6-16.0) gm/dl MCH 25.5 L (27-33) pg MCHC 31.3 L (32-36) g/dl RDW 16.2 H (11.5-14.5) % Lymphocytes % 15.7 L (16-45) % Monocytes % 10.7 H (0-9) % BUN 25 H (7-17) mg/dL Random Glucose 118 H (70-110) mg/dL AST 38 H (14-36) U/L RSV (PCR) Detected H (Not Detected) Condition at Discharge: (2) Stable Discharge Medications - Discharge Medications Prescriptions: Prednisone [Prednisone 20Mg] 40 mg PO DAILYWM #10 tab Salmeterol Xinafoate [Serevent Diskus] 1 puff INH RESP.Q12H #1 disk Tiotropium [place] [Spiriva] 1 cap INH RESP.DAILY #1 cap.w.dev Benzonatate [Tessalon Perles] 100 mg PO TID PRN #60 capsule PRN Reason: Cough Azithromycin [Zithromax] 500 mg PO DAILY #2 tab Home Medications: Ambulatory Orders Albuterol Sulfate [Proair Respiclick] 2 puff INH Q4HR PRN 08/19/16 [Last Taken Unknown] Aspirin 81 mg PO DAILY 08/19/16 [Last Taken 02/07/17] Clopidogrel Bisulfate [Plavix] 75 mg PO DAILY 08/19/16 [Last Taken 02/07/17] Nitroglycerin [Nitrostat] 0.4 mg SL ASDIR PRN 08/19/16 [Last Taken Unknown] Sertraline HCl [Zoloft] 50 mg PO DAILY 08/19/16 [Last Taken 02/06/17] Tiotropium [place] [Spiriva] 18 mcg PO DAILY 08/19/16 [Last Taken 02/06/17] Mirtazapine 7.5 mg PO QHS 02/07/17 [Last Taken Unknown] Azithromycin [Zithromax] 500 mg PO DAILY #2 tab 02/09/17 [Last Taken Unknown] Benzonatate [Tessalon Perles] 100 mg PO TID PRN #60 capsule 02/09/17 [Last Taken Unknown] Prednisone [Prednisone 20Mg] 40 mg PO DAILYWM #10 tab 02/09/17 [Last Taken Unknown] Salmeterol Xinafoate [Serevent Diskus] 1 puff INH RESP.Q12H #1 disk 02/09/17 [ Last Taken Unknown] Tiotropium [place] [Spiriva] 1 cap INH RESP.DAILY #1 cap.w.dev 02/09/17 [Last Taken Unknown] Discharge Plan - Discharge Instructions Activity at Discharge: As Per Physical Therapy, Increase Activity as Tolerated Diet at Discharge: Advance to Usual Diet Instructions: Benzonatate (By mouth), Prednisone (By mouth), Azithromycin (By mouth), Salmeterol (By breathing), Tiotropium (By breathing), Respiratory Syncytial Virus (DC), Using Oxygen at Home (DC), Chronic Obstructive Pulmonary Disease (DC), Air Travel With Oxygen (GEN) Additional Instructions: 2 Activity: As Per Physical Therapy Increase Activity as Tolerated 2 Diet: Advance to Usual Diet 2 Consults: [] 2 Follow Up: [With your primary care physician within 7-10 days] 2 Dressing/Wound Care: (Type) (Change) 2 Additional: [Continue home medications New medications prednisone per order spiriva 1 capsule daily Tessalon [place] 100mg three times per day or every 8 hours as needed for cough Azithromycin 500mg daily until gone Serevent 1 puff twice per day inhaled Use 2L oxygen while at rest and 3L of oxygen with activity]
[2017-02-10] MEDS ORDERED: PREDNISONE 20 MG TAB PO SCH (08:00)
== END 2017-02-09 17:43 | disposition home health service (06) | DRG 192 ==
LOC: ER 09:28 → MEDSURG 12:00 → OBSVTOIN 12:00
PROVIDERS: ADMIT Family Medicine; ATTEND Family Medicine
DX: J44.1 Chronic obstructive pulmonary disease with (acute) exacerbation (principal); Z78.9 Other specified health status; I25.2 Old myocardial infarction; I10 Essential (primary) hypertension; Z87.891 Personal history of nicotine dependence
CPT/HCPCS: 71020; 80053; 84484; 85025; 85027; 87400; 93005; 93010; 94640; 94760; 94761; 96374; 97166; 99223; 99233; 99239; 99285; J2930

== ENCOUNTER 2018-10-31 13:04 | Inpatient (IN) | payer MEDICARE ==
[2018-10-31] MEDS ORDERED: 0.9 % SODIUM CHLORIDE 1000ML 1,000 ML IV PRN (13:26)
[2018-10-31] MEDS ORDERED: IPRATROPIUM/ALBUTEROL (0.5MG/3MG) NEB INH ONE (13:26)
[2018-10-31] MEDS ORDERED: METHYLPREDNISOLONE PF 125MG/VIAL IVP ONE (13:26)
[2018-10-31] MEDS ORDERED: CEFTRIAXONE 1GM/50ML BAG 1 GM/50 ML BAG IVPB ONE (13:29)
--- NOTE | 2018-10-31 13:36 | Emergency Department Record ---
History of Present Illness - General Chief Complaint: Shortness of breath Stated Complaint: MARSHALL Time Seen by Provider: 10/31/18 13:26 Source: Patient Mode of Arrival: Wheelchair Limitations: No limitations - History of Present Illness Initial Comments: Pt with a complaint of progressive DIBa nd cough with "tyson" sputum. No known fever, no CP, no vomiting. Pt is taking NO medications or resp treatments. She has a history of COPD and lifetime tobacco abuse. Denies history of cardiac disease or arrythmia. Onset/Timin -: Week(s) Quality: Aching Consistency: Constant Improves With: Rest Worsens With: Exertion, Inspiration, Movement Known History Of: COPD Associated Symptoms: Cough Treatments Prior to Arrival: None - Related Data Home Oxygen Therapy: No Home Medications Medication Instructions Recorded Confirmed Last Taken No Home Med [NO HOME MEDS] 10/31/18 10/31/18 Unknown Allergies Allergy/AdvReac Type Severity Reaction Status Date / Time codeine AdvReac VOMITING Verified 08/19/16 11:39 Travel Screening - Travel/Exposure Within Last 30 Days Have you traveled within the last 30 days?: No Review of Systems Constitutional: Denies: Chills, Fever, Night sweats, Weakness Eyes: Denies: Eye discharge, Photophobia ENT: Denies: Congestion, Ear pain, Throat pain Respiratory: Reports: Cough, Dyspnea, Wheezes Cardiovascular: Denies: Arrhythmia, Chest pain, Palpitations, Syncope Endocrine: Reports: Fatigue. Denies: Polydipsia, Polyuria Gastrointestinal: Denies: Abdominal pain, Constipation, Diarrhea, Nausea, Vomiting Musculoskeletal: Denies: Back pain Skin: Denies: Bruising, Rash Neurological: Denies: Confusion, Headache, Seizure, Weakness Psychiatric: Denies: Anxiety, Suicidal thoughts Hematological/Lymphatic: Denies: Anemia Past Medical History - SOCIAL HISTORY Smoking Status: Former smoker - RESPIRATORY Hx Respiratory Disorders: Yes Hx COPD: Yes Hx Pneumonia: Yes (Sep 2017) - CARDIOVASCULAR Hx Cardio Disorders: Yes Hx Chest Pain: Yes Hx Hypertension: Yes Comment:: Valve replacement Aug 2017 - NEURO Hx Neuro Disorders: No - GI Hx GI Disorders: No - Hx Genitourinary Disorders: No - ENDOCRINE Hx Endocrine Disorders: No - MUSCULOSKELETAL Hx Musculoskeletal Disorders: No - PSYCH Hx Psych Problems: Yes Hx Anxiety: Yes Hx Depression: Yes - HEMATOLOGY/ONCOLOGY Hx Hematology/Oncology Disorders: No Family Medical History Any Significant Family History?: Yes Hx Heart Disease: Father, Mother Physical Exam - General General Appearance: Alert, Oriented x3, Cooperative, Moderate distress - Head Head exam: Atraumatic - Eye Eye exam: Normal appearance, PERRL, EOMI. negative: Nystagmus - ENT ENT exam: Normal exam, Mucous membranes dry, Normal external ear exam, Normal orophraynx, TM's normal bilaterally - Neck Neck exam: Normal inspection, Full ROM. negative: Tenderness - Respiratory Respiratory exam: Accessory muscle use, Decreased breath sounds, Rhonchi - Cardiovascular Cardiovascular Exam: Regular rate, Irregular rhythm, Systolic murmur Peripheral Pulses: 2+: Radial (R), Radial (L) - GI/Abdominal GI/Abdominal exam: Soft, Normal bowel sounds. negative: Tenderness - Extremities Extremities exam: Normal inspection. negative: Joint swelling, Pedal edema, Tenderness - Back Back exam: Denies: CVA tenderness (R), Muscle spasm - Neurological Neurological exam: Alert, CN II-XII intact, Oriented X3 - Psychiatric Psychiatric exam: Normal affect, Normal mood - Skin Skin exam: Cyanosis (of the lips on arrival. ) Course Vital Signs 10/31/18 13:26 Pulse Rate [ 113 H Bean Sorter ] Respiratory 32 H Rate Blood Pressure 123/89 [Left Arm] Pulse Ox 94 L Medical Decision Making - Data Complexity MDM Data: Labs Ordered and/or Reviewed, X-Ray Ordered and/or Reviewed, EKG Ordered and/or Reviewed, Independent Visualization of Image, Tracing, or Specimen - Lab Data Result diagrams: 10/31/18 13:25 10/31/18 13:25 - EKG Data -: EKG Interpreted by Me (SR 87 with ectopy. ) EKG: No Acute Changes Critical Care Time Critical Care Time: Yes (multiple resp tx and rechecks, IV Mag for etopy) Total Critical Care Time: 30 Disposition Disposition: Admit Clinical Impression: COPD with exacerbation, Ectopic cardiac beats Disposition: Still a Patient at [facility] Decision to Admit: Admit from ER Decision to Admit Date: 10/31/18 Decision to Admit Time: 14:52 Accepting Physician: Dr. Stanford Time Discussed w/Accepting Physician: 14:52 Condition: (3) Guarded Forms: Patient Portal Access Time of Disposition: 14:52 Quality - Quality Measures Quality Measures: N/A - Blood Pressure Screening Does Patient Have Any of the Following: No Blood Pressure Classification: Pre-Hypertensive BP Reading Systolic Measurement: 123 Diastolic Measurement: 89 Screening for High Blood Pressure: < Pre-Hypertensive BP, F/U Documented > [ [id number]] Pre-Hypertensive Follow-up Interventions: Follow-up with rescreen every year.
[2018-10-31 13:38] LABS: HEMATOCRIT 43.7 % (35.0-47.0); MEAN CELL VOLUME 90.1 fl (81-97); MEAN CORPUSCULAR HEMOGLOBIN 28.9 pg (27-33); MEAN PLATELET VOLUME 10.7 fl (7.4-10.4); PLATELET COUNT 197 K/uL (130-400); RED BLOOD COUNT 4.85 M/uL (3.80-5.40); RED CELL DISTRIBUTION WIDTH 15.6 % (11.5-14.5); WHITE BLOOD COUNT W/O DIFF 9.4 K/uL (4.2-12.2)
[2018-10-31] MEDS ORDERED: MAGNESIUM SULFATE 16 MEQ in 0.9 % SODIUM CHLORIDE 100ML 100 ML IV ONE (13:44)
[2018-10-31 13:48] LABS: BLOOD UREA NITROGEN 28 mg/dL (8-23); CREATININE 0.8 mg/dL (0.5-0.9); EST GLOMERULAR FILTRATION RATE > 60 mL/min
[2018-10-31 13:49] LABS: PLATELET ESTIMATE NORMAL (NORMAL)
[2018-10-31 13:51] LABS: GLUCOSE,RANDOM 133 mg/dL (74-109)
--- NOTE | 2018-10-31 16:46 | History & Physical ---
History of Present Illness - Date of Service Date of Service for History & Physical: 11/01/18 - History of Present Illness History of Present Illness: Mrs. Calixto is a 78 y/o female with 5 day complaint of shortness of breath and cough productive of collier sputum. The patient says that she had fevers and chills as well and today her symptoms worsened. She has a history of COPD and says that she stopped taking her medications some time ago because she was afraid of the side-effects. The patient admits to smoking but is vague about how much she now smokes. She has not had a primary care doctor for quite some time and is a poor historian. however she reports a history of heart valve replacement but cannot recall when or what medications she has been on. On arrival to the ED the patient was noted to have saturations in the high 80s and chest xray showed chronic interstitial disease with scattered patchy infiltrates. The patient is admitted for acute COPD exacerbation due to medication non-compliance. Travel Screening - Travel/Exposure Within Last 30 Days Have you traveled within the last 30 days?: No Review of Systems Constitutional: Denies: Chills, Fever, Night sweats, Weakness Eyes: Denies: Eye discharge, Photophobia ENT: Denies: Congestion, Ear pain, Throat pain Respiratory: Reports: Cough, Dyspnea, Wheezes Cardiovascular: Denies: Arrhythmia, Chest pain, Palpitations, Syncope Endocrine: Reports: Fatigue. Denies: Polydipsia, Polyuria Gastrointestinal: Denies: Abdominal pain, Constipation, Diarrhea, Nausea, Vomiting Musculoskeletal: Denies: Back pain Skin: Denies: Bruising, Rash Neurological: Denies: Confusion, Headache, Seizure, Weakness Psychiatric: Denies: Anxiety, Suicidal thoughts Hematological/Lymphatic: Denies: Anemia Past Medical History - SOCIAL HISTORY Smoking Status: Former smoker - RESPIRATORY Hx Respiratory Disorders: Yes Hx COPD: Yes Hx Pneumonia: Yes (Sep 2017) - CARDIOVASCULAR Hx Cardio Disorders: Yes Hx Chest Pain: Yes Hx Hypertension: Yes Comment:: Valve replacement Aug 2017 - NEURO Hx Neuro Disorders: No - GI Hx GI Disorders: No - Hx Genitourinary Disorders: No - ENDOCRINE Hx Endocrine Disorders: No - MUSCULOSKELETAL Hx Musculoskeletal Disorders: No - PSYCH Hx Psych Problems: Yes Hx Anxiety: Yes Hx Depression: Yes - HEMATOLOGY/ONCOLOGY Hx Hematology/Oncology Disorders: No Family Medical History Any Significant Family History?: Yes Hx Heart Disease: Father, Mother H&P Meds/Allergies - Allergies Allergies: Allergies Allergy/AdvReac Type Severity Reaction Status Date / Time codeine AdvReac VOMITING Verified 08/19/16 11:39 - Home Medications Home Medications Medication Instructions Recorded Confirmed Last Taken No Home Med [NO HOME MEDS] 10/31/18 10/31/18 Unknown - Active Medications Active Medications: Current Medications Sodium Chloride () 1,000 mls @ 15 mls/hr IV .Q24H PRN PRN Reason: LARGE VOLUME IV Physical Exam - Vital Signs Vital Signs: Vital Signs - Last 24 Hrs Temp Pulse Pulse Resp BP BP Pulse Ox 10/31/18 16:20 98.3 F 82 20 133/85 92 L 10/31/18 15:03 98.5 F 105 H 20 123/79 94 L 10/31/18 13:42 87 24 95 10/31/18 13:26 113 H 32 H 123/89 94 L - General General Appearance: Alert, Oriented x3, Cooperative, Moderate distress Limitations: No limitations - Head Head exam: Atraumatic - Eye Eye exam: Normal appearance, PERRL, EOMI. negative: Nystagmus - ENT ENT exam: Normal exam, Mucous membranes dry, Normal external ear exam, Normal orophraynx, TM's normal bilaterally - Neck Neck exam: Normal inspection, Full ROM. negative: Tenderness - Respiratory Respiratory exam: Accessory muscle use, Decreased breath sounds, Rhonchi - Cardiovascular Cardiovascular Exam: Regular rate, Irregular rhythm, Systolic murmur Peripheral Pulses: 2+: Radial (R), Radial (L), Dorsalis Pedis (R), Dorsalis Pedis (L) - GI/Abdominal GI/Abdominal exam: Soft, Normal bowel sounds. negative: Tenderness - Extremities Extremities exam: Normal inspection. negative: Joint swelling, Pedal edema, Tenderness - Back Back exam: Denies: CVA tenderness (R), Muscle spasm - Neurological Neurological exam: Alert, CN II-XII intact, Oriented X3 - Psychiatric Psychiatric exam: Normal affect, Normal mood - Skin Skin exam: Cyanosis (of the lips on arrival. ) Results - Labs Result Diagrams: 11/01/18 06:16 10/31/18 13:25 Labs Last 24 Hours: Laboratory Results - last 24 hr 12/18/18 12/18/18 12/18/18 13:25 13:25 13:25 WBC 9.4 RBC 4.85 Hgb 14.0 Hct 43.7 MCV 90.1 MCH 28.9 MCHC 32.0 RDW 15.6 H Plt Count 197 MPV 10.7 H Neutrophils % 76.0 Band Neutrophils % 5.0 Eosinophils % Not Reportable Basophils % Not Reportable Lymphocytes 10.0 L Monocytes 9.0 Platelet Estimate Normal RBC Morphology Normal Sodium 142 Potassium 3.8 Chloride 98 Carbon Dioxide 29.0 Anion Gap 15.0 BUN 28 H Creatinine 0.8 Estimated GFR > 60 Random Glucose 133 H Calcium 10.1 Magnesium 2.0 VTE H&P Assessment - Risk for VTE Risk for VTE: Yes Risk Level: High Risk Assessment Date: 10/31/18 Risk Assessment Time: 16:47 VTE Orders Placed or Will Be Placed: Yes Plan - Inpatient Certification Inpatient Certification: Admit to inpatient care: Based on my medical assessment, after consideration of patient's risk factors (age, co-morbidities and patient presenting symptoms and acuity), I expect that this patient will remain in the hospital greater than or equal to two midnights and that the services needed warrant inpatient care because: Patient Risk Factors: COPD exacerbation Estimated length of stay: 48 hours The patient may reasonably be expected to be discharged or transferred to a hospital within 96 hours after admission to [facility]. I certify that my determination is in accordance with my understanding of Medicare requirements for reasonable and necessary inpatient services. 10/31/18 16:47 - Detailed Diagnosis and Plan (1) COPD exacerbation Current Visit: No Status: Acute Base Code: J44.1 - CHRONIC OBSTRUCTIVE PULMONARY DISEASE W (ACUTE) EXACERBATION Comment: 10/31/18: - afebrile, CBC w/ diff WNL - oxygen to maintain sats > 90%, currently on 2 liters nasal cannula. - duonebs Q4H, Breo daily, Albuterol Q2H PRN, solumedrol 60mg Q12H - continuous cardiac catheterization technologist - will likely need home O2 qualifier prior to discharge. (2) Pneumonia Current Visit: Yes Status: Acute Base Code: J18.9 - PNEUMONIA, UNSPECIFIED ORGANISM Comment: 10/31/18: - patchy infiltrates on xray. 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 - nutrition consult to be placed. (4) Smoker Current Visit: Yes Status: Acute Base Code: F17.200 - NICOTINE DEPENDENCE, UNSPECIFIED, UNCOMPLICATED Comment: 10/31/18: - smoking cessation counseled. - nicotine patches ordered. (5) History of aortic valve replacement Current Visit: Yes Status: Acute Base Code: Z95.2 - PRESENCE OF PROSTHETIC HEART VALVE (6) DVT prophylaxis Current Visit: No Status: Acute Base Code: [id number] - Comment: 10/31/18: - Lovenox 40mg daily (7) DNR (do not resuscitate) Current Visit: Yes Status: Acute Base Code: Z66 - DO NOT RESUSCITATE Comment: 10/31/18: -Code status discussed and patient verbalises understanding of DNR status. Nursing and patient's friend as witnesses that the patient is in sound mind and the patient's decision is not coerced.
[2018-10-31] MEDS ORDERED: ALBUTEROL SULFATE (0.083%) 2.5 MG/3 ML NEB INH PRN (17:05)
[2018-10-31] MEDS ORDERED: ACETAMINOPHEN 325 MG TAB PO PRN (17:10)
[2018-10-31] MEDS ORDERED: BREO (FLUTICASONE/VILANTEROL) 200MCG/25MCG INHALER INH SCH (17:10)
[2018-10-31] MEDS: IPRATROPIUM/ALBUTEROL (0.5MG/3MG) NEB INH SCH ×2 (17:22→21:52)
[2018-10-31] MEDS ORDERED: AZITHROMYCIN 500 MG in 0.9 % SODIUM CHLORIDE 250ML 250 ML IVPB SCH (17:30)
[2018-10-31] MEDS: ENOXAPARIN 40 MG/0.4 ML SYR SQ SCH (18:45)
[2018-10-31] MEDS: 0.9 % SODIUM CHLORIDE 1000ML 1,000 ML IV PRN (18:47)
[2018-10-31] MEDS: METHYLPREDNISOLONE PF 125MG/VIAL IVP SCH (22:41)
[2018-10-31] MEDS ORDERED: ZINC OXIDE 28.35 GM TUBE TOP PRN (23:21)
[2018-11-01 02:09] LABS: URINE APPEARANCE CLEAR; URINE BILIRUBIN NEGATIVE (NEGATIVE); URINE BLOOD MODERATE (NEGATIVE); URINE COLOR YELLOW; URINE GLUCOSE (UA) NEGATIVE (NEGATIVE); URINE KETONE NEGATIVE (NEGATIVE); URINE LEUKOCYTE ESTERASE NEGATIVE (NEGATIVE); URINE NITRITE NEGATIVE (NEGATIVE); URINE UROBILINOGEN 0.2 E.U./dL (0.20 - 1.00)
[2018-11-01 02:10] LABS: URINE WBC 0 - 2 (0-2/hpf)
[2018-11-01 02:11] LABS: URINE BACTERIA NONE SEEN; URINE EPITHELIAL CELLS 0 - 2 (FEW)
[2018-11-01] MEDS: 0.9 % SODIUM CHLORIDE 1000ML 1,000 ML IV PRN (05:30)
[2018-11-01] MEDS: IPRATROPIUM/ALBUTEROL (0.5MG/3MG) NEB INH SCH ×3 (06:17→14:20)
[2018-11-01 06:51] LABS: BASO % 0.2 % (0-6); HEMATOCRIT 39.1 % (35.0-47.0); HEMOGLOBIN 12.1 gm/dl (11.6-16.0); LYMPH % 6.5 % (16-45); MEAN CELL VOLUME 92.4 fl (81-97); MEAN CORPUSCULAR HEMOGLOBIN 28.6 pg (27-33); MEAN CORPUSCULAR HGB CONC 30.9 g/dl (32-36); MEAN PLATELET VOLUME 11.1 fl (7.4-10.4); MONO % 6.2 % (0-9); PLATELET COUNT 170 K/uL (130-400); RED BLOOD COUNT 4.23 M/uL (3.80-5.40); RED CELL DISTRIBUTION WIDTH 15.2 % (11.5-14.5); WHITE BLOOD COUNT W/O DIFF 6.3 K/uL (4.2-12.2)
[2018-11-01 07:11] LABS: PLATELET ESTIMATE NORMAL (NORMAL)
[2018-11-01] MEDS: ENOXAPARIN 40 MG/0.4 ML SYR SQ SCH (09:16)
[2018-11-01] MEDS: METHYLPREDNISOLONE PF 125MG/VIAL IVP SCH (09:17)
[2018-11-01] MEDS ORDERED: AZITHROMYCIN 500 MG TABLET PO SCH (10:00)
[2018-11-01] MEDS ORDERED: BREO (FLUTICASONE/VILANTEROL) 200MCG/25MCG INHALER INH SCH (10:00)
[2018-11-01] MEDS ORDERED: GUAIFENESIN 600 MG TABCR PO SCH (10:00)
--- NOTE | 2018-11-01 10:19 | Physician Progress Note ---
Subjective - Date Date of Physician Progress Note: 11/01/18 - Subjective Subjective Comment: The patient is awake and alert but has had coughed constantly since yesterday. She says that she feels better and is ready to go home because she is concerned about her dog. She appears confused sometimes and has to be instructed to keep oxygen on. Objective - Vital Signs Vital Signs: Vital Signs - Last 24 Hrs Temp Pulse Pulse Resp BP BP BP 11/01/18 09:00 98.1 F 78 18 108/71 11/01/18 06:19 82 16 11/01/18 01:45 98.5 F 83 22 110/71 10/31/18 21:55 10/31/18 21:53 80 16 10/31/18 20:40 104 H 24 10/31/18 20:15 86 24 10/31/18 17:36 89 22 10/31/18 17:22 89 20 10/31/18 17:10 98.4 F 77 14 107/67 10/31/18 16:27 95 H 22 10/31/18 16:20 98.3 F 82 20 133/85 10/31/18 15:03 98.5 F 105 H 20 123/79 10/31/18 13:42 87 24 10/31/18 13:26 113 H 32 H 123/89 Pulse Ox 11/01/18 09:00 91 L 11/01/18 06:19 98 11/01/18 01:45 95 10/31/18 21:55 92 L 10/31/18 21:53 92 L 10/31/18 20:40 96 10/31/18 20:15 98 10/31/18 17:36 94 L 10/31/18 17:22 96 10/31/18 17:10 95 10/31/18 16:27 10/31/18 16:20 92 L 10/31/18 15:03 94 L 10/31/18 13:42 95 10/31/18 13:26 94 L - General General Appearance: Alert, Oriented x3, Cooperative, Moderate distress Limitations: No limitations - Head Head exam: Atraumatic - Eye Eye exam: Normal appearance, PERRL, EOMI. negative: Nystagmus - ENT ENT exam: Normal exam, Mucous membranes dry, Normal external ear exam, Normal orophraynx, TM's normal bilaterally - Neck Neck exam: Normal inspection, Full ROM. negative: Tenderness - Respiratory Respiratory exam: Accessory muscle use, Decreased breath sounds, Rhonchi - Cardiovascular Cardiovascular Exam: Regular rate, Irregular rhythm, Systolic murmur Peripheral Pulses: 2+: Radial (R), Radial (L), Dorsalis Pedis (R), Dorsalis Pedis (L) - GI/Abdominal GI/Abdominal exam: Soft, Normal bowel sounds. negative: Tenderness - Extremities Extremities exam: Normal inspection. negative: Joint swelling, Pedal edema, Tenderness - Back Back exam: Denies: CVA tenderness (R), Muscle spasm - Neurological Neurological exam: Alert, CN II-XII intact, Oriented X3 - Psychiatric Psychiatric exam: Normal affect, Normal mood - Skin Skin exam: Cyanosis (of the lips on arrival. ) Assessment and Plan - Assessment and Plan (1) COPD exacerbation Current Visit: No Status: Acute Base Code: J44.1 - CHRONIC OBSTRUCTIVE PULMONARY DISEASE W (ACUTE) EXACERBATION Comment: 11/01/18: - afebrile, CBC w/ diff WNL - oxygen to maintain sats > 90%, currently on 2 liters nasal cannula. - duonebs Q4H, Breo daily, Albuterol Q2H PRN, solumedrol 60mg Q12H - continuous threat monitoring analyst - tachycardia 100-120 - will likely need home O2 qualifier prior to discharge. (2) Pneumonia Current Visit: Yes Status: Acute Base Code: J18.9 - PNEUMONIA, UNSPECIFIED ORGANISM Comment: 11/01/18: - Patchy infiltrates on xray. 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 - nutrition consult to be placed. (4) Smoker Current Visit: Yes Status: Acute Base Code: F17.200 - NICOTINE DEPENDENCE, UNSPECIFIED, UNCOMPLICATED Comment: 11/01/18: - smoking cessation counseled. - nicotine patches ordered. (5) History of aortic valve replacement Current Visit: Yes Status: Acute Base Code: Z95.2 - PRESENCE OF PROSTHETIC HEART VALVE (6) DVT prophylaxis Current Visit: No Status: Acute Base Code: [id number] - Comment: 11/01/18: - Lovenox 40mg daily (7) DNR (do not resuscitate) Current Visit: Yes Status: Acute Base Code: Z66 - DO NOT RESUSCITATE Comment: 11/01/18: -Code status discussed and patient verbalises understanding of DNR status. Nursing and patient's friend as witnesses that the patient is in sound mind and the patient's decision is not coerced. - Disposition Disposition: Will need home oxygen qualifier. SW consulted for discharge planning. Results - Labs Result Diagrams: 11/01/18 06:16 10/31/18 13:25 Labs Last 24 Hours: Laboratory Results - last 24 hr 10/31/18 10/31/18 10/31/18 13:25 13:25 13:25 WBC 9.4 RBC 4.85 Hgb 14.0 Hct 43.7 MCV 90.1 MCH 28.9 MCHC 32.0 RDW 15.6 H Plt Count 197 MPV 10.7 H Neutrophils % 76.0 Band Neutrophils % 5.0 Lymphocytes % Monocytes % Eosinophils % Not Reportable Basophils % Not Reportable Lymphocytes 10.0 L Monocytes 9.0 Platelet Estimate Normal RBC Morphology Normal Sodium 142 Potassium 3.8 Chloride 98 Carbon Dioxide 29.0 Anion Gap 15.0 BUN 28 H Creatinine 0.8 Estimated GFR > 60 Random Glucose 133 H Calcium 10.1 Magnesium 2.0 Urine Color Urine Appearance Urine pH Ur Specific [place] Urine Protein Urine Glucose (UA) Urine Ketones Urine Blood Urine Nitrite Urine Bilirubin Urine Urobilinogen Ur Leukocyte Esterase Urine RBC Urine WBC Ur Epithelial Cells Urine Bacteria 11/01/18 11/01/18 01:50 06:16 WBC 6.3 RBC 4.23 Hgb 12.1 Hct 39.1 MCV 92.4 MCH 28.6 MCHC 30.9 L RDW 15.2 H Plt Count 170 MPV 11.1 H Neutrophils % 86.0 H Band Neutrophils % 7.0 H Lymphocytes % 6.5 L Monocytes % 6.2 Eosinophils % 0.0 Basophils % 0.2 Lymphocytes 6.0 L Monocytes 1.0 Platelet Estimate Normal RBC Morphology Normal Sodium Potassium Chloride Carbon Dioxide Anion Gap BUN Creatinine Estimated GFR Random Glucose Calcium Magnesium Urine Color Yellow Urine Appearance Clear Urine pH 6.0 Ur Specific [place] >= 1.030 Urine Protein 100 mg/dl H Urine Glucose (UA) Negative Urine Ketones Negative Urine Blood Moderate Urine Nitrite Negative Urine Bilirubin Negative Urine Urobilinogen 0.2 Ur Leukocyte Esterase Negative Urine RBC 7 - 10 Urine WBC 0 - 2 Ur Epithelial Cells 0 - 2 Urine Bacteria None seen DVT/PE Assessment - Risk for VTE Risk for VTE: No Risk Level: High Risk Assessment Date: 10/31/18 Risk Assessment Time: 16:47 VTE Orders Placed or Will Be Placed: Yes - Active Medicaitons Current Medications: Current Medications Acetaminophen (Tylenol 325mg) 650 mg PO Q4H PRN PRN Reason: PAIN - MILD(1-4)/FEVER Albuterol Sulfate (Albuterol Sulfate) 2.5 mg INH RESP.Q2H PRN PRN Reason: DIFFICULTY IN BREATHING Albuterol/Ipratropium (Duoneb) 3 ml INH RESP.Q4H.[facility] Last Admin: 11/01/18 10:05 Dose: 3 ml Azithromycin (Zithromax) 500 mg PO DAILY [facility] Last Admin: 11/01/18 09:17 Dose: 500 mg Enoxaparin Sodium (Lovenox) 40 mg SQ DAILY [facility] Last Admin: 11/01/18 09:16 Dose: 40 mg Guaifenesin (Mucinex) 600 mg PO BID [facility] Last Admin: 11/01/18 09:17 Dose: 600 mg Sodium Chloride () 1,000 mls @ 15 mls/hr IV .Q24H PRN PRN Reason: LARGE VOLUME IV Sodium Chloride () 1,000 mls @ 100 mls/hr IV .Q10H PRN PRN Reason: LARGE VOLUME IV Last Admin: 11/01/18 05:30 Dose: 100 mls/hr CEFTRIAXONE 1GM/50ML BAG (Ceftriaxone 1 Gm-D5w Bag) 1 gm in 50 mls @ 100 mls/ hr IVPB Q24H [facility] Methylprednisolone Sodium Succinate (Solu-Medrol) 60 mg IVP Q12HR [facility] Last Admin: 11/01/18 09:17 Dose: 60 mg Zinc Oxide (Desitin) 10 gm TOP BID PRN PRN Reason: RASH AMI Plan - Labs Result Diagrams: 11/01/18 06:16 10/31/18 13:25
--- NOTE | 2018-11-01 13:45 | Rehab Evaluation ---
Patient Information - Patient Information Diagnosis: Acute exacerbation COPD Ordered Treatment: PT Evaluate and Treat Status: Initial Evaluation History: Detail (The patient was seen in ED on 10/31 with complaints of a progressive cough with tyson sputum; the patient was admitted to the inpatient floor.) Past Medical/Surgical Hx: PAST MEDICAL/SURGICAL HISTORY Past Surgical History Stent(cardiac) 2015, hip fracture repair, Valve replacement. PMH - Respiratory Hx Respiratory Disorders Yes Hx Chronic Obstructive Yes Pulmonary Disease (COPD) Hx Pneumonia Yes: Sep 2017 PMH - Cardiovascular Hx Cardiovascular Disorders Yes Hx Chest Pain Yes Hx Hypertension Yes Comment: Valve replacement Aug 2017 PMH - Neuro Hx Neurological Disorders No PMH - GI Hx Gastrointestinal Disorders No PMH - Hx Genitourinary Disorders No Patient No PMH - Endocrine Hx Endocrine Disorders No PMH - Musculoskeletal Hx Musculoskeletal Disorders No PMH - Psych Hx Psychiatric Problems Yes Hx Anxiety Yes Hx Depression Yes PMH - Hematology/Oncology Hx Hematology/Oncology No Disorders Premorbid Status: Detail (Per the patient's report she was ambulating with a single point cane at home and at times without a device. The patient states she had occasional help from family with meals. She stated she occasionally cleaned and did her laundry and was independent with all ADL's.) Social History: Detail (The patient lives alone in a 2 story house with no stairs at the enterance. The patient primarily uses the first floor except for when showering. The upstairs bathroom is equipped with a higher tub/shower combination without grab bars and with sliding doors and elevated toilet seat. The downstair's bathroom does not have a shower. The patient reports she has difficulty getting into the tub and usually takes showers only one time a week and "spit" baths in between. The patient has a standard cane and home O2.) Precautions: [place], Fall, Other (O2 with activity) - Time With Patient Total Time Spent With Patient (Min): 30 Treatment Procedures: Detail (Initial Evaluation) Subjective Information - Subjective Information Per Patient (The patient has no complaints.) Objective Data - Mental Status Patient Orientation: Oriented x3 - Visual Perception Appears within normal limits for therapeutic activities - ROM Within normal limits (The patient's UE and LE AROM was WFL.) - Strength/Tone Not within normal limits (The patient's UE strength was generally 4+ to 5/5. LE strength was generally 4/5 in hip musculature, 4+ to 5/5 in knee musculature and 4+/5 in ankle musculature.) - Bed Mobility Independent (The patient was independent with supine to and from sit transfer.) - Transfers Independent (The patient was independent with sit to and from stand transfer) - Balance Balance Sitting: Good Balance Standing: Fair (The patient scored 19/29 using the Tinetti assessment) - Gait Detail (The patient ambulated without device with CG of 1 and hand hold onto IV pole a distance of 14 feet x 1.) Therapy Assessment - Therapy Assessment Detail (The patient was independent with bed mobility and transfer. Recommend the patient ambulate with cane at home . Ongoing/ Home PT is recommended to assess the patient's safety with mobility at home including tub transfer and use of tub bench.) Problem List - Problem List Physical Therapy Problem List: Detail (1) Decreased Balance as measured by the Tinetti Assessment Tool. 2) Decreased hip strength) Goals - Goals Physical Therapy Goals: 1) The patient will be independent with all transfers including tub transfers. 2) The patient will ambulate independently with assistive device household distances with O2. 3) Improve the patient's balance using the Tinetti Assessment Tool to the moderate risk for falling category. Prognosis - Prognosis Moderate Plan - Plan Physical Therapy Plan: PT M-F daily until discharge from [facility] for balance exercises, LE strengthening exercises and gait training. Home PT is recommended.
[2018-11-01] MEDS ORDERED: CEFTRIAXONE 1GM/50ML BAG 1 GM/50 ML BAG IVPB SCH (14:00)
--- NOTE | 2018-11-01 16:22 | Discharge Summary ---
Providers Discharge Summary Date: 11/01/18 Date of admission: 10/31/18 15:57 Attending physician: FARZANA ORTEGA Consults: Consult Orders 10/31/18 23:16 Consult - Case Management Now Comment: lives alone Reason For Exam: home care referral Physical Exam - Vital Signs Vital Signs: Vital Signs - Last 24 Hrs Temp Pulse Pulse Resp BP BP BP 11/01/18 14:20 110 H 18 11/01/18 10:00 118 H 20 11/01/18 09:00 98.1 F 78 20 108/71 11/01/18 06:19 82 16 11/01/18 01:45 98.5 F 83 22 110/71 10/31/18 21:55 10/31/18 21:53 80 16 10/31/18 20:40 104 H 24 10/31/18 20:15 86 24 10/31/18 17:36 89 22 10/31/18 17:22 89 20 10/31/18 17:10 98.4 F 77 14 107/67 10/31/18 16:27 95 H 22 10/31/18 16:20 98.3 F 82 20 133/85 Pulse Ox 11/01/18 14:20 11/01/18 10:00 91 L 11/01/18 09:00 91 L 11/01/18 06:19 98 11/01/18 01:45 95 10/31/18 21:55 92 L 10/31/18 21:53 92 L 10/31/18 20:40 96 10/31/18 20:15 98 10/31/18 17:36 94 L 10/31/18 17:22 96 10/31/18 17:10 95 10/31/18 16:27 10/31/18 16:20 92 L - General General Appearance: Alert, Oriented x3, Cooperative, Moderate distress Limitations: No limitations - Head Head exam: Atraumatic - Eye Eye exam: Normal appearance, PERRL, EOMI. negative: Nystagmus - ENT ENT exam: Normal exam, Mucous membranes dry, Normal external ear exam, Normal orophraynx, TM's normal bilaterally - Neck Neck exam: Normal inspection, Full ROM. negative: Tenderness - Respiratory Respiratory exam: Accessory muscle use, Decreased breath sounds, Rhonchi - Cardiovascular Cardiovascular Exam: Regular rate, Irregular rhythm, Systolic murmur Peripheral Pulses: 2+: Radial (R), Radial (L), Dorsalis Pedis (R), Dorsalis Pedis (L) - GI/Abdominal GI/Abdominal exam: Soft, Normal bowel sounds. negative: Tenderness - Extremities Extremities exam: Normal inspection. negative: Joint swelling, Pedal edema, Tenderness - Back Back exam: Denies: CVA tenderness (R), Muscle spasm - Neurological Neurological exam: Alert, CN II-XII intact, Oriented X3 - Psychiatric Psychiatric exam: Normal affect, Normal mood - Skin Skin exam: Cyanosis (of the lips on arrival. ) Hospitalization - Hospitalization Admission Diagnosis: Acute ex COPD - Problem List/Discharge Diagnosis (1) COPD exacerbation Current Visit: No Status: Acute Base Code: J44.1 - CHRONIC OBSTRUCTIVE PULMONARY DISEASE W (ACUTE) EXACERBATION Comment: 11/01/18: - afebrile, CBC w/ diff WNL - oxygen to maintain sats > 90%, currently on 2 liters nasal cannula. - duonebs Q4H, Breo daily, Albuterol Q2H PRN, solumedrol 60mg Q12H - continuous night monitor - tachycardia 100-120 - will likely need home O2 qualifier prior to discharge. (2) Pneumonia Current Visit: Yes Status: Acute Base Code: J18.9 - PNEUMONIA, UNSPECIFIED ORGANISM Comment: 11/01/18: - Patchy infiltrates on xray. 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 - nutrition consult to be placed. (4) Smoker Current Visit: Yes Status: Acute Base Code: F17.200 - NICOTINE DEPENDENCE, UNSPECIFIED, UNCOMPLICATED Comment: 11/01/18: - smoking cessation counseled. - nicotine patches ordered. (5) History of aortic valve replacement Current Visit: Yes Status: Acute Base Code: Z95.2 - PRESENCE OF PROSTHETIC HEART VALVE (6) DVT prophylaxis Current Visit: No Status: Acute Base Code: [id number] - Comment: 11/01/18: - Lovenox 40mg daily (7) DNR (do not resuscitate) Current Visit: Yes Status: Acute Base Code: Z66 - DO NOT RESUSCITATE Comment: 11/01/18: -Code status discussed and patient verbalises understanding of DNR status. Nursing and patient's friend as witnesses that the patient is in sound mind and the patient's decision is not coerced. - Disposition Will need home oxygen qualifier. SW consulted for discharge planning. - Hospitalization Course Disposition: Home Health Service Hospital Course: Mrs. Calixto is a 78 y/o female with 5 day complaint of shortness of breath and cough productive of collier sputum. The patient says that she had fevers and chills as well and today her symptoms worsened. She has a history of COPD and says that she stopped taking her medications some time ago because she was afraid of the side-effects. The patient admits to smoking but is vague about how much she now smokes. She has not had a primary care doctor for quite some time and is a poor historian. however she reports a history of heart valve replacement but cannot recall when or what medications she has been on. On arrival to the ED the patient was noted to have saturations in the high 80s and chest xray showed chronic interstitial disease with scattered patchy infiltrates. The patient is admitted for acute COPD exacerbation due to medication non-compliance. 10/02/18 4:15 assessment: The patient is AO x 3 on evaluation this afternoon. We discussed the plan of care again this afternoon and the patient says that she understands the need for continuous oxygen use when she goes home. She is keen on going home this afternoon. She had an oxygen qualifier which indicates saturations of less than 88% on room air at rest consistently and 92% on 2 liters oxygen. Procedures: Imaging and X-Rays 10/31/18 13:26 CHEST 2 VIEWS [RAD] Stat Cardiology Procedures 10/31/18 13:26 Ophthalmic Surgeon NOW EKG NOW 10/31/18 17:10 Ophthalmic Surgeon .Continuous Abnormal Labs: Abnormal Lab Results 10/31/18 10/31/18 11/01/18 Range/Units 13:25 13:25 01:50 MCHC (32-36) g/dl RDW 15.6 H (11.5-14.5) % MPV 10.7 H (7.4-10.4) fl Neutrophils % (47-80) % Band Neutrophils % (0-5) % Lymphocytes % (16-45) % Lymphocytes 10.0 L (16-45) % BUN 28 H (8-23) mg/dL Random Glucose 133 H (74-109) mg/dL Urine Protein 100 mg/dl H (NEGATIVE) 11/01/18 Range/Units 06:16 MCHC 30.9 L (32-36) g/dl RDW 15.2 H (11.5-14.5) % MPV 11.1 H (7.4-10.4) fl Neutrophils % 86.0 H (47-80) % Band Neutrophils % 7.0 H (0-5) % Lymphocytes % 6.5 L (16-45) % Lymphocytes 6.0 L (16-45) % BUN (8-23) mg/dL Random Glucose (74-109) mg/dL Urine Protein (NEGATIVE) Condition at Discharge: (3) Guarded Discharge Medications - Discharge Medications Prescriptions: Albuterol Sulfate [Ventolin Hfa] 1 - 2 puff IH .EVERY 4-6 HOURS PRN #1 inhaler PRN Reason: Difficulty In Breathing Azithromycin [Zithromax] 500 mg PO DAILY #5 tab Cefdinir [Omnicef] 300 mg PO BID #10 cap Fluticasone/Vilanterol 200/25 [Breo Ellipta 200-25 Mcg INH] 1 puff INH DAILY #1 inhaler Guaifenesin [Mucinex] 600 mg PO BID #10 tabcr Home Medications: Ambulatory Orders Albuterol Sulfate [Ventolin Hfa] 1 - 2 puff IH .EVERY 4-6 HOURS PRN #1 inhaler 11/01/18 [Last Taken Unknown] Azithromycin [Zithromax] 500 mg PO DAILY #5 tab 11/01/18 [Last Taken Unknown] Cefdinir [Omnicef] 300 mg PO BID #10 cap 11/01/18 [Last Taken Unknown] Fluticasone/Vilanterol 200/25 [Breo Ellipta 200-25 Mcg INH] 1 puff INH DAILY #1 inhaler 11/01/18 [Last Taken Unknown] Guaifenesin [Mucinex] 600 mg PO BID #10 tabcr 11/01/18 [Last Taken Unknown] Prednisone [Prednisone 20Mg] 40 mg PO DAILY #10 tab 11/01/18 [Last Taken Unknown ] Discharge Plan - Discharge Instructions Diet at Discharge: Regular Diet Additional Instructions: Medications to take at home: Prednisone 40mg daily x 5 days Cefdinir 300mg, 1 tab twice daily x 5 days Zithromax 500mg daily x 5 days Breo ellipta inhaler 1 puff daily Albuterol every 4-6 hours as needed Important that you keep your oxygen on at all times. Appointment with Abhi Joe NP on 11/15/18 Quality Measures - Quality Measures Quality Measures: Advance Directives, Documentation of Current Medications in Medical Record, Elder Maltreatment Screen and Follow-Up Plan, Screening for High Blood Pressure and F/U Documented - Current Medications Quality Measure: Measure #130: Documentation of Current Medications Documentation of Current Medications: <Current Medications Documented/Reviewed> [G8403] - Blood Pressure Screening Quality Measure: Screening for High Blood Pressure and Follow-Up Documented Does Patient Have Any of the Following: No Blood Pressure Classification: Pre-Hypertensive BP Reading Systolic Measurement: 133 Diastolic Measurement: 85 Screening for High Blood Pressure: < Pre-Hypertensive BP, F/U Documented > [ G8950] Pre-Hypertensive Follow-up Interventions: Lifestyle modifications. Lifestyle Modification: Dietary Approaches to Stop Hypertension (DASH) Eating Plan - Advance Directives Quality Measure: Measure #47: Care Plan Advance Directives Established: No Advance Directives Information Provided To Patient: Declined Advance Directives on File: No Living Will: No Power of Office Rental Clerk: No Advance Care Planning: <Care Plan/Decision Maker Documented; Discussed & Documented> [1123F] - Elder Abuse Suspicion Index Screening: Elder Abuse Suspicion Index Screening Rely on people for bathing, dressing, shopping, banking, etc: No Prevented from getting food, clothes, medication, etc: No Made to feel shamed or threatened by someone: No Forced to sign papers or use money against will: No Feel afraid, touched in ways not wanted or hurt physically: No Poor eye contact, withdrawn, malnourished, cuts or bruises: No Screening Result: Negative result EASI Reference Information: Liv LUKE, Mc Junior, Saul D, Karlene Adams.Development and validation of a tool to assist physicians identification of elder abuse: The Elder Abuse Suspicion Index (EASI ). Journal of Elder Abuse and Neglect, 2008; 20 (3): 276-300. - Elder Maltreatment Screen Quality Measures: Elder Maltreatment Screen and Follow-Up Plan Elder Maltreatment Screen: <Negative, No Follow-Up Plan Required> [J6464]
--- NOTE | 2018-11-02 09:02 | RADIOLOGY REPORT ---
EXAM: CHEST, TWO VIEWS HISTORY: DIFFICULTY IN BREATHING. TECHNIQUE: Frontal and lateral views of the chest were performed. Comparison: 02/07/18. FINDINGS: The heart size is normal. The lungs are hyperinflated. Chronic underlying interstitial lung disease. Superimposed patchy infiltrates. IMPRESSION: CHRONIC UNDERLYING INTERSTITIAL LUNG DISEASE WITH SUPERIMPOSED PATCHY INFILTRATES. JOB NUMBER: [id number] MTDD
== END 2018-11-01 17:09 | disposition home health service (06) | DRG 194 ==
LOC: ER 13:04 → MEDSURG 15:57
PROVIDERS: ADMIT Internal Medicine; ATTEND Internal Medicine
DX: J18.9 Pneumonia, unspecified organism (principal); J44.1 Chronic obstructive pulmonary disease with (acute) exacerbation; F17.200 Nicotine dependence, unspecified, uncomplicated; Z95.2 Presence of prosthetic heart valve; Z66 Do not resuscitate
CPT/HCPCS: 99285 ×2; 96365; 96366; 96375; 96368; 83735; 80048; 85027; 71046; 94640; 93005; 93010; J0696; 81001; 94760; 99223; 99239; J0456; J1650; J2930; J7050

== ENCOUNTER 2018-12-05 16:07 | Emergency (ER) | payer MEDICARE ==
[2018-12-05] MEDS ORDERED: IPRATROPIUM/ALBUTEROL (0.5MG/3MG) NEB INH ONE ×2 (16:29→19:09)
--- NOTE | 2018-12-05 16:35 | Emergency Department Record ---
History of Present Illness - General Chief Complaint: Shortness of breath Stated Complaint: MARSHALL, Time Seen by Provider: 12/05/18 16:23 Source: Patient Mode of Arrival: Ambulatory Limitations: No limitations - History of Present Illness Initial Comments: 78 yo female presents with two days of shortness of breath. She denies any significant cough. She has COPD currently on home oxygen. No fevers. She noticed worsening of her breathing gradually over the two days. She has had some subjective fevers as well. It hurts on the right lower ribs when she takes deep breaths as well. She was recently admitted to [facility] for pneumonia with COPD. She states she was sent home on oxygen which is new to her. She has CAD and reports she had a valve replaced in 2016. She states she does not have a PCP or Dietary Manager. She has a campaign advisor. Dr Chu. REINOSO Complaint: Cough, Shortness of breath Onset/Timin -: Days(s) Severity: Moderate Quality: Other Improves With: Oxygen Worsens With: Exertion, Movement Known History Of: COPD, Other (Valve replacement) Context: Other (Hx of COPD) Treatments Prior to Arrival: Bronchodilator - Related Data Home Oxygen Therapy: Yes Previous Rx's Medication Instructions Recorded Albuterol Sulfate [Ventolin Hfa] 1 - 2 puff IH .EVERY 4-6 HOURS PRN 11/01/18 #1 inhaler Allergies Allergy/AdvReac Type Severity Reaction Status Date / Time codeine AdvReac VOMITING Verified 12/05/18 16:26 Travel Screening - Travel/Exposure Within Last 30 Days Have you traveled within the last 30 days?: No Review of Systems Constitutional: Denies: Chills, Fever, Malaise, Weakness Eyes: Denies: Eye discharge, Eye pain, Photophobia, Vision change ENT: Denies: Congestion, Throat pain Respiratory: Reports: Cough, Dyspnea, Wheezes. Denies: Hemoptysis, Stridor Cardiovascular: Reports: Dyspnea on exertion, Edema. Denies: Chest pain, Palpitations, Syncope Endocrine: Reports: Fatigue Gastrointestinal: Denies: Abdominal pain, Diarrhea, Nausea, Vomiting Genitourinary: Denies: Dysuria, Urgency Musculoskeletal: Denies: Arthralgia, Back pain, Myalgia Skin: Denies: Bruising, Change in color, Rash Neurological: Denies: Headache, Weakness Psychiatric: Denies: Anxiety Hematological/Lymphatic: Denies: Easy bleeding, Easy bruising, Swollen glands Past Medical History - SOCIAL HISTORY Smoking Status: Former smoker Alcohol Use: None Drug Use: None - RESPIRATORY Hx Respiratory Disorders: Yes Hx COPD: Yes Hx Pneumonia: Yes (Sep 2017) - CARDIOVASCULAR Hx Cardio Disorders: Yes Hx Chest Pain: Yes Hx Hypertension: Yes Comment:: Valve replacement Aug 2017 - NEURO Hx Neuro Disorders: No - GI Hx GI Disorders: No - Hx Genitourinary Disorders: No - ENDOCRINE Hx Endocrine Disorders: No - MUSCULOSKELETAL Hx Musculoskeletal Disorders: No - PSYCH Hx Psych Problems: Yes Hx Anxiety: Yes Hx Depression: Yes - HEMATOLOGY/ONCOLOGY Hx Hematology/Oncology Disorders: No Family Medical History Any Significant Family History?: Yes Hx Heart Disease: Father, Mother Physical Exam - General General Appearance: Alert, Oriented x3, Cooperative, No acute distress, Other ( thin frail in general appearance,chronic) Limitations: No limitations - Head Head exam: Atraumatic, Normal inspection - Eye Eye exam: Normal appearance, PERRL. negative: Conjunctival injection, Scleral icterus - ENT ENT exam: Normal exam, Mucous membranes moist Ear exam: Normal external inspection Nasal Exam: Normal inspection Mouth exam: Normal external inspection - Neck Neck exam: Normal inspection - Respiratory Respiratory exam: Accessory muscle use (mild), Decreased breath sounds, Prolonged expiratory, Wheezes. negative: Normal lung sounds bilaterally, Respiratory distress, Rhonchi, Stridor - Cardiovascular Cardiovascular Exam: Regular rate, Normal rhythm, Normal heart sounds Peripheral Pulses: 2+: Radial (R), Radial (L) - GI/Abdominal GI/Abdominal exam: Soft. negative: Tenderness - Rectal Rectal exam: Deferred - exam: Deferred - Extremities Extremities exam: Normal inspection, Normal capillary refill. negative: Pedal edema, Tenderness - Back Back exam: Denies: CVA tenderness (R), CVA tenderness (L), Paraspinal tenderness - Neurological Neurological exam: Alert, Oriented X3. negative: Motor sensory deficit - Psychiatric Psychiatric exam: Normal affect, Normal mood. negative: Agitated, Anxious - Skin Skin exam: Dry, Intact, Normal color, Warm Course Vital Signs 12/05/18 12/05/18 16:17 16:27 Temperature 97.4 F L Pulse Rate 78 Respiratory 32 H Rate Blood Pressure 114/75 Pulse Ox 89 L 90 L - Reevaluation(s) Reevaluation #1: EMR of recent admission/ discharge reviewed EKG 16:36 sinus rhythm, rate is 84 with APC's, axis is L, ST NS lateral changes , Intervals normal, similar EKG on 10/31/19 12/05/18 16:53 The labs were reviewed ProBnp is 723 No significant abnormality of the CMP Normal renal function. 12/05/18 17:07 12/05/18 17:20 The Troponin is negative 12/05/18 17:28 The CXR was preliminarily reviewed. No acute process. Hyperinflation. 12/05/18 18:56 The CTA of the chest was negative for PE or pneumonia. Extensive emphysema 12/05/18 19:11 The patient is doing very well. Her saturations have been upper 90's since the initial treatment. Her breathing is calm and relaxed. She was given Solumedrol. The CT is negative for PE or pneumonia. No changes on the EKG or troponin after 2 days of wheezing/short of breath. She has home oxygen and she is at her baseline requirement of 2 LNC. We discussed observation overnight vs DC home. The patient is comfortable with DC home. She will be given a prescription for prednisone. No immediate indication for antibiotics with no sputum, no fever, no infiltrate, no leukocytosis. 12/05/18 19:15 The patient also informs me she has a visiting nurse appointment tomorrow establishing close follow up 12/05/18 19:36 The patient is very comfortable, no shortness of breath, ready for DC Medical Decision Making - Lab Data Result diagrams: 12/05/18 16:35 12/05/18 16:35 Disposition Disposition: Discharge Clinical Impression: COPD with exacerbation, Hypoxia Disposition: Home, Self-Care Condition: (1) Good Instructions: COPD (Chronic Obstructive Pulmonary Disease) (ED) Additional Instructions: Take the Prednisone daily for the next 5 days Return if worse, fever, sputum in your cough, short of breath Call your family doctor tomorrow Follow up tomorrow as scheduled with your visiting nurse. Forms: Patient Portal Access Time of Disposition: 18:57 Quality - Quality Measures Quality Measures: N/A - Blood Pressure Screening Does Patient Have Any of the Following: No Blood Pressure Classification: Normal BP Reading Systolic Measurement: 106 Diastolic Measurement: 74 Screening for High Blood Pressure: < Normal BP, F/U Not Required > [G8783]
[2018-12-05 16:41] LABS: BASO % 0.6 % (0-6); EOS % 0.8 % (0-6); GRAN % 78.5 % (47-80); HEMATOCRIT 40.7 % (35.0-47.0); HEMOGLOBIN 12.4 gm/dl (11.6-16.0); LYMPH % 12.5 % (16-45); MEAN CELL VOLUME 90.6 fl (81-97); MEAN CORPUSCULAR HEMOGLOBIN 27.6 pg (27-33); MEAN CORPUSCULAR HGB CONC 30.5 g/dl (32-36); MONO % 7.6 % (0-9); PLATELET COUNT 301 K/uL (130-400); RED BLOOD COUNT 4.49 M/uL (3.80-5.40); RED CELL DISTRIBUTION WIDTH 14.5 % (11.5-14.5); WHITE BLOOD COUNT W/O DIFF 7.2 K/uL (4.2-12.2)
[2018-12-05 16:54] LABS: INR 1.2; PARTIAL THROMBOPLASTIN TIME 25.3 SECONDS (24.5-39.1); PROTHROMBIN TIME (PATIENT) 11.8 SECONDS (9.5-12.1)
[2018-12-05 16:58] LABS: BLOOD UREA NITROGEN 23 mg/dL (8-23); CREATININE 0.6 mg/dL (0.5-0.9); EST GLOMERULAR FILTRATION RATE > 60 mL/min; TOTAL PROTEIN 6.7 g/dL (6.6-8.7)
[2018-12-05 17:00] LABS: GLUCOSE,RANDOM 118 mg/dL (74-109)
[2018-12-05 17:03] LABS: ALB/GLOB RATIO 0.9 (1.1-1.8); ALBUMIN 3.2 g/dL (4.0-5.0); ALKALINE PHOSPHATASE 82 U/L (45-87); ALT/SGPT 21 U/L (<33); AST/SGOT 29 U/L (10.0-35.0)
[2018-12-05] MEDS ORDERED: METHYLPREDNISOLONE PF 125MG/VIAL IVP ONE (18:57)
--- NOTE | 2018-12-06 20:13 | RADIOLOGY REPORT ---
EXAM: CHEST 2 VIEWS HISTORY: SHORTNESS OF BREATH, WHICH HAS WORSENED OVER THE PAST TWO DAYS. RECENT PNEUMONIA. TECHNIQUE: PA and lateral upright views of the chest were obtained. COMPARISON: 10/31/2018. FINDINGS: The patient is status post cardiac valve replacement. The heart is normal in size. There is mild tortuosity of the aorta. Calcified mediastinal lymph nodes are present and are unchanged. There is no pulmonary vascular congestion. The lungs are hyperinflated consistent with underlying COPD. Chronic fibrotic changes are also present within both lungs. The previously noted acute pulmonary infiltrates have resolved. No definite infiltrates are identified currently. There is minor blunting of the posterior costophrenic angles suggesting tiny effusions. There is no pneumothorax. Dextroconvex scoliosis is present within the thoracic spine. IMPRESSION: 1. INTERVAL RESOLUTION OF THE PREVIOUSLY NOTED ACUTE PULMONARY INFILTRATES. 2. COPD AND UNDERLYING CHRONIC INTERSTITIAL LUNG DISEASE. 3. SUSPECTED TINY BILATERAL PLEURAL EFFUSIONS. JOB NUMBER: [id number] MTDD
--- NOTE | 2018-12-06 20:41 | CT ANGIOGRAM REPORT ---
EXAM: CT ANGIOGRAM CHEST CTA w contrast HISTORY: HYPOXIA. PAIN WITH INSPIRATION ON THE RIGHT. TECHNIQUE: Standard CT angiography of the chest was performed with postprocessing following the bolus administration of 90 mL of Omnipaque-350. Additional coronal and sagittal maximum-intensity projection reformatted images were performed on an independent workstation under concurrent supervision. COMPARISON: 09/21/2017. FINDINGS: The patient is status post aortic valve replacement. The aorta is ectatic but stable. There is no dissection. There is no pericardial effusion. The pulmonary arterial tree is normal. There is no pulmonary embolus. There is no mediastinal or hilar lymphadenopathy. Extensive centrilobular emphysematous changes are present within both lungs. There is a focal area of mass-like consolidation within the posterolateral right lower lobe within the costophrenic sulcus. This measures 2.1 x 1.8 x 3.6 cm. Differential considerations include a focal area of consolidation/pneumonia or a developing mass. Careful follow-up is recommended. Stable parenchymal scarring is noted within the lingula. There are no effusions. Degenerative changes are present within the spine. There are no acute osseous abnormalities. There is large volume ascites. Stable cysts are present within the liver. IMPRESSION: 1. THERE IS A FOCAL AREA OF MASS-LIKE CONSOLIDATION WITHIN THE POSTEROLATERAL RIGHT LOWE4R LOBE. MANAGEMENT OPTIONS INCLUDE SHORT-TERM FOLLOW-UP VS. PET CT OR PERCUTANEOUS BIOPSY. 2. NO EVIDENCE FOR PULMONARY EMBOLUS OR AORTIC DISSECTION. 3. EXTENSIVE EMPHYSEMATOUS CHANGES WITHIN BOTH LUNGS. 4. LARGE VOLUME ASCITES. JOB NUMBER: [id number] [facility]
== END 2018-12-05 19:46 | disposition home or self-care (01) ==
LOC: ER 16:07
DX: J44.1 Chronic obstructive pulmonary disease with (acute) exacerbation (principal); R09.02 Hypoxemia; I10 Essential (primary) hypertension; Z99.81 Dependence on supplemental oxygen; Z95.2 Presence of prosthetic heart valve; Z87.891 Personal history of nicotine dependence
CPT/HCPCS: 99284 ×2; 96374; 85025; 85730; 85610; 80053; 84484; 83880; 71046; 71275; 94640 ×2; 93005; 93010; Q9967; J2930